=== PATIENT | male | born 1960 | race Caucasian/White ===

== ENCOUNTER 2018-07-04 17:42 | Inpatient (IN) | payer BC, OTHER ==
--- NOTE | 2018-07-04 18:15 | ER Document Report ---
ED Medical Screen (RME) - General Chief Complaint: Shortness Of Breath Stated Complaint: DIFFICULTY BREATHING Time Seen by Provider: 07/04/18 18:01 Notes: 57-year-old male to emergency department for evaluation of shortness of breath, lower extremity edema. Patient states that he was treated for "bronchitis" about a week ago. Medication was finished and continues to have increased shortness of breath. Noticed that he has gained approximately 50 pounds. Feels swollen on his abdomen. Noticed that time he tries to get his shoes on his feet are really swollen. Patient denies any chest pain at this time. Denies any fever, chills, sweats or other issues at this time other than shortness of breath, edema and weight gain. States that he had a heart attack when he was in his 20s and had a stent placed. TRAVEL OUTSIDE OF THE [place] IN LAST 30 DAYS: No - HPI Onset: Last week - Related Data Allergies/Adverse Reactions: No Known Allergies Allergy (Unverified 07/04/18 17:45) Past Medical History - General Information source: Patient - Social History Cigarette use (# per day): No Chew tobacco use (# tins/day): No Frequency of alcohol use: None Drug Abuse: None Lives with: Spouse/Significant other Pulmonary Medical History: Reports: Hx Bronchitis, Hx Pneumonia Renal/ Medical History: Denies: Hx Peritoneal Dialysis Physical Exam - Vital signs Vitals: Temp Pulse Resp BP Pulse Ox 99.0 F 92 22 H 142/92 H 90 L 07/04/18 17:53 07/04/18 17:53 07/04/18 17:53 07/04/18 17:53 07/04/18 17:53 Course - Vital Signs Vital signs: Temp Pulse Resp BP Pulse Ox 99.0 F 92 22 H 142/92 H 90 L 07/04/18 17:53 07/04/18 17:53 07/04/18 17:53 07/04/18 17:53 07/04/18 17:53 Doctor's Discharge - Discharge Referrals: LOCAL,NO [Primary Care Provider] - Follow up as needed
[2018-07-04 18:58] LABS: ABSOLUTE EOSINOPHILS # (AUTO) 0.1 10^3/uL (0.0-0.6); ABSOLUTE LYMPHOCYTES (AUTO) 1.3 10^3/uL (0.5-4.7); ABSOLUTE MONOCYTES (AUTO) 0.8 10^3/uL (0.1-1.4); BASOPHILS % (AUTO) 0.3 % (0-2); EOSINOPHILS % (AUTO) 1.8 % (0-6); HEMATOCRIT 49.6 % (37.9-51.0); HEMOGLOBIN 16.6 g/dL (13.5-17.0); LYMPHOCYTES % (AUTO) 17.6 % (13-45); MEAN CORPUSCULAR HEMOGLOBIN 30.9 pg (27.0-33.4); MEAN CORPUSCULAR HGB CONC 33.5 g/dL (32.0-36.0); MEAN CORPUSCULAR VOLUME 92 fl (80-97); MONOCYTES % (AUTO) 10.7 % (3-13); PLATELET COUNT 115 10^3/uL (150-450); RED BLOOD COUNT 5.39 10^6/uL (4.35-5.55); SEGMENTED NEUTROPHILS % (AUTO) 69.6 % (42-78); TOTAL CELLS COUNTED % (AUTO) 100 %; WHITE BLOOD COUNT 7.1 10^3/uL (4.0-10.5)
[2018-07-04 19:14] LABS: ALANINE AMINOTRANSFERASE 30 U/L (21-72); ALBUMIN 3.7 g/dL (3.5-5.0); ALKALINE PHOSPHATASE 58 U/L (38-126); ANION GAP 10 (5-19); ASPARTATE AMINO TRANSFERASE 29 U/L (17-59); BILIRUBIN,DIRECT 0.3 mg/dL (0.0-0.4); BILIRUBIN,TOTAL 0.6 mg/dL (0.2-1.3); BLOOD UREA NITROGEN 15 mg/dL (7-20); CARBON DIOXIDE 35 mmol/L (22-30); CHLORIDE 99 mmol/L (98-107); CREATINE KINASE 77 U/L (55-170); GLUCOSE 127 mg/dL (75-110); POTASSIUM 4.6 mmol/L (3.6-5.0); SODIUM 144.4 mmol/L (137-145); TOTAL PROTEIN 7.1 g/dL (6.3-8.2)
--- NOTE | 2018-07-04 19:21 | RADIOLOGY REPORT (SQ) ---
EXAM DESCRIPTION: CHEST 2 VIEWS COMPLETED DATE/TIME: 07/04/2018 6:54 pm REASON FOR STUDY: sob COMPARISON: None. NUMBER OF VIEWS: Two views. TECHNIQUE: Frontal and lateral radiographic views of the chest acquired. LIMITATIONS: None. FINDINGS: LUNGS AND PLEURA: No consolidation, masses or pneumothorax. Small right pleural effusion. MEDIASTINUM AND HILAR STRUCTURES: Age-appropriate. HEART AND VASCULAR STRUCTURES: Cardiac enlargement. Vascular congestion. BONES: No acute findings. HARDWARE: None in the chest. OTHER: No other significant finding. IMPRESSION: CARDIAC ENLARGEMENT. VASCULAR CONGESTION.Small right pleural effusion. TECHNICAL DOCUMENTATION: JOB ID: [id number] 2010 [employer]- All Rights Reserved Reading location - IP/workstation name: [email or web address]
[2018-07-04 19:26] LABS: CREATINE KINASE MB 1.63 ng/mL (<4.55)
--- NOTE | 2018-07-04 19:26 | ER Document Report ---
ED General - General Chief Complaint: Shortness Of Breath Stated Complaint: DIFFICULTY BREATHING Time Seen by Provider: 07/04/18 18:01 Notes: Patient is a 57 year old male that comes emergency department for chief complaint of shortness of breath, swelling of the abdomen, and lower extremity swelling. He states that he initially was being treated for bronchitis about 2 weeks ago, his cough is improved but he still has shortness of breath, increased fatigue, and now the swelling. He denies fever, nausea vomiting, particular areas of abdominal pain, he denies chest pain. Past medical history includes AR with stent in his 20s, hyperlipidemia, hypertension. He admits to drinking daily alcohol. Primary care is in [place]. TRAVEL OUTSIDE OF THE [place] IN LAST 30 DAYS: No - Related Data Allergies/Adverse Reactions: No Known Allergies Allergy (Unverified 07/04/18 17:45) Past Medical History - General Information source: Patient - Social History Smoking Status: Never Smoker Cigarette use (# per day): No Chew tobacco use (# tins/day): No Frequency of alcohol use: Heavy Drug Abuse: None Lives with: Spouse/Significant other Family History: Reviewed & Not Pertinent Patient has suicidal ideation: No Patient has homicidal ideation: No - Past Medical History Cardiac Medical History: Reports: Hx Heart Attack, Hx Hypercholesterolemia, Hx Hypertension Pulmonary Medical History: Reports: Hx Bronchitis, Hx Pneumonia Renal/ Medical History: Denies: Hx Peritoneal Dialysis Past Surgical History: Reports: Hx Cardiac Catheterization - Immunizations Hx Diphtheria, Pertussis, Tetanus Vaccination: Yes Review of Systems - Review of Systems Constitutional: See HPI EENT: No symptoms reported Cardiovascular: See HPI Respiratory: See HPI Gastrointestinal: See HPI Genitourinary: No symptoms reported Male Genitourinary: No symptoms reported Musculoskeletal: No symptoms reported Skin: No symptoms reported Hematologic/Lymphatic: No symptoms reported Neurological/Psychological: No symptoms reported Physical Exam - Vital signs Vitals: Temp Pulse Resp BP Pulse Ox 99.0 F 92 22 H 142/92 H 90 L 07/04/18 17:53 07/04/18 17:53 07/04/18 17:53 07/04/18 17:53 07/04/18 17:53 - Notes Notes: GENERAL: Alert, interacts well. Sitting up straight on the bed with borderline tachypnea but no acute distress. HEAD: Normocephalic, atraumatic. EYES: Pupils equal, round, and reactive to light. Extraocular movements intact. ENT: Oral mucosa moist, tongue midline. NECK: Full range of motion. Supple. Trachea midline. LUNGS: Decreased breath sounds bilaterally with mild tachypnea but no overt rales, wheezes, or rhonchi. Patient is not in respiratory distress. HEART: Extrasystoles, irregular rhythm. No tachycardia. No murmur. ABDOMEN: Abdominal distention noted although no tenderness is noted EXTREMITIES: 3+ pitting edema over the lower tibia and feet. Normal pulses and sensation. Unremarkable lower extremity exam otherwise. BACK: no cervical, thoracic, lumbar midline tenderness. No saddle anesthesia, normal distal neurovascular exam. NEUROLOGICAL: Alert and oriented x3. Normal speech. [cranial nerves II through XII grossly intact]. PSYCH: Normal affect, normal mood. SKIN: Warm, dry, normal turgor. No rashes or lesions noted. Course - Re-evaluation Re-evalutation: EKG shows sinus rhythm at a rate of 91, borderline R-wave progression, QTC of 488, first-degree heart block with ID of 204. No T-wave inversions or ST segment abnormality in consecutive leads. No comparison EKG. Patient has mild tachypnea on exam, appears mildly short of breath but not in distress, no labored breathing. Difficult to hear with decreased lung sounds, no overt rales, rhonchi, or wheezes. Patient has distended abdomen which is nontender, 3+ pitting edema of the lower extremities. He does drink a lot of alcohol but no history of liver failure. PT, PTT checked and unremarkable. LFTs unremarkable. CBC unremarkable. Chemistry generally unremarkable. Chest x-ray showing vascular congestion with small right pleural effusion, beginning Lasix, nitroglycerin. Borderline pressures, only using transdermal patch. BNP is elevated, no history of heart failure for the patient. Troponin is indeterminate at 0.06. No chest pain. No current symptoms reported by patient. Will discuss with hospitalist for admission for evaluation and treatment for new onset congestive heart failure. Patient and state agreement with this plan. 07/04/18 20:[address] Cristy Morales, hospitalist, patient accepted for admission to telemetry. - Vital Signs Vital signs: Temp Pulse Resp BP Pulse Ox 99.0 F 92 17 124/105 H 94 07/04/18 17:53 07/04/18 17:53 07/04/18 19:01 07/04/18 19:01 07/04/18 19:01 - Laboratory Result Diagrams: 07/04/18 18:45 07/04/18 18:45 Laboratory results interpreted by me: 07/04/18 07/04/18 07/04/18 18:45 18:45 18:45 RDW 15.0 H Plt Count 115 L Carbon Dioxide 35 H Glucose 127 H NT-Pro-B Natriuret Pep 2250 H Discharge - Discharge Clinical Impression: Pulmonary vascular congestion, Lower extremity edema, Shortness of breath Condition: Stable Disposition: ADMITTED INPATIENT Admitting Provider: Hospitalist Unit Admitted: Telemetry
[2018-07-04 19:33] LABS: TROPONIN I 0.06 ng/mL
[2018-07-04 19:34] LABS: PROTHROMBIN TIME 14.7 SEC (11.4-15.4)
[2018-07-04] MEDS ORDERED: FUROSEMIDE INJ/PF 40 MG/4 ML SDV IV ONE (19:38)
[2018-07-04] MEDS ORDERED: NITROGLYCERIN 5 MG (0.2 MG/HR) PATCH.TD24 TD ONE (19:41)
--- NOTE | 2018-07-04 21:21 | PDOC H&P ---
History of Present Illness Admission Date/PCP: 07/04/18 20:40 Patient complains of: Shortness of breath, lower extremity edema History of Present Illness: ALEE GUTIERRES is a 57 year old male who has history of hypertension and dyslipidemia and OR about 30 years ago status post angioplasty. Patient's problems started about 2 months ago when he had respiratory issues and was diagnosed with pneumonia and was treated with antibiotic but he did not improve and felt like "fluid is building up in his body". Patient continued to have increasing edema in his lower extremities and abdomen with increasing shortness of breath was especially with exertion. He does not complain of chest pain, dizziness or lightheadedness. No paroxysmal nocturnal dyspnea or orthopnea. Patient gained about 35 pounds during the last 2-month. In the emergency room his x-ray was positive for cardiomegaly and vascular congestion. Past Medical History Cardiac Medical History: Reports: Myocardial Infarction, Hyperlipidema, Hypertension Pulmonary Medical History: Reports: Bronchitis, Pneumonia Past Surgical History Past Surgical History: Reports: Cardiac Catheterization Social History Lives with: Spouse/Significant other Smoking Status: Never Smoker Family History Parental Family History Reviewed: Yes Children Family History Reviewed: Yes Sibling(s) Family History Reviewed.: Yes Medication/Allergy Home Medications: Losartan Potassium [Cozaar 50 mg Tablet] 50 mg PO DAILY 07/04/18 Pravastatin Sodium [Pravachol] 20 mg PO DAILY 07/04/18 Allergies/Adverse Reactions: No Known Allergies Allergy (Unverified 07/04/18 17:45) Review of Systems All systems: reviewed and no additional remarkable complaints except as stated Physical Exam Vital Signs: Temp Pulse Resp BP Pulse Ox 99.0 F 92 17 124/105 H 94 07/04/18 17:53 07/04/18 17:53 07/04/18 19:01 07/04/18 19:01 07/04/18 19:01 Intake & Output 07/03/18 07/04/18 07/05/18 06:59 06:59 06:59 Output Total 550 Balance -550 General appearance: PRESENT: cooperative, morbidly obese. ABSENT: no acute distress Head exam: PRESENT: atraumatic, normocephalic Eye exam: PRESENT: EOMI, PERRLA. ABSENT: conjunctival injection, nystagmus Ear exam: ABSENT: bleeding, drainage Mouth exam: PRESENT: neck supple, tongue midline. ABSENT: dry mucosa, laceration Throat exam: ABSENT: post pharyngeal erythema, tonsillar erythema, tonsillar exudate Neck exam: PRESENT: full ROM. ABSENT: lymphadenopathy, meningismus, tenderness , thyromegaly, tracheal deviation Respiratory exam: PRESENT: clear to auscultation gunjan. ABSENT: accessory muscle use, tachypnea Cardiovascular exam: PRESENT: RRR. ABSENT: diastolic murmur, irregular rhythm, systolic murmur Pulses: PRESENT: normal dorsalis pedis pul GI/Abdominal exam: PRESENT: normal bowel sounds, soft. ABSENT: distended, guarding, mass, organolmegaly, rebound, tenderness Extremities exam: PRESENT: pedal edema, +2 edema. ABSENT: clubbing Musculoskeletal exam: PRESENT: ambulatory, normal inspection Neurological exam: PRESENT: alert, awake, oriented to person, oriented to place , oriented to time, oriented to situation, CN II-XII grossly intact. ABSENT: motor sensory deficit Psychiatric exam: PRESENT: appropriate affect, normal mood. ABSENT: homicidal ideation, suicidal ideation Results Impressions: Chest X-Ray 07/04/18 18:08 IMPRESSION: CARDIAC ENLARGEMENT. VASCULAR CONGESTION.Small right pleural effusion. Assessment & Plan - Diagnosis (1) CHF (congestive heart failure) Is this a current diagnosis for this admission?: Yes Plan: Admit to telemetry Daily weights and strict I's and O's IV Lasix 40 mg twice daily and monitor renal function check serial troponin An echocardiogram Consult cardiology Add aspirin and carvedilol Continue losartan (2) Pulmonary vascular congestion Is this a current diagnosis for this admission?: Yes Plan: Due to CHF (4) Lower extremity edema Is this a current diagnosis for this admission?: Yes Plan: Due to CHF (5) Hypertension Is this a current diagnosis for this admission?: Yes Plan: Continue with losartan and add carvedilol monitor blood pressure (6) Dyslipidemia Is this a current diagnosis for this admission?: Yes Plan: Continue statin
[2018-07-04] MEDS: CARVEDILOL 3.125 MG TABLET PO SCH (21:58)
[2018-07-04] MEDS: ATORVASTATIN CALCIUM 10 MG TABLET PO SCH (21:58)
[2018-07-04] MEDS: FUROSEMIDE INJ/PF 40 MG/4 ML SDV IV SCH (21:58)
[2018-07-04] MEDS: ENOXAPARIN SODIUM INJ 40 MG/0.4 ML DISP.SYRIN SUBCUT SCH (21:59)
[2018-07-04] MEDS ORDERED: FUROSEMIDE INJ/PF 20 MG/2 ML SDV IV SCH (22:00)
[2018-07-05 04:38] LABS: ABSOLUTE EOSINOPHILS # (AUTO) 0.2 10^3/uL (0.0-0.6); ABSOLUTE LYMPHOCYTES (AUTO) 1.2 10^3/uL (0.5-4.7); ABSOLUTE NEUT (AUTO) 5.7 10^3/uL (1.7-8.2); BASOPHILS % (AUTO) 0.2 % (0-2); EOSINOPHILS % (AUTO) 2.2 % (0-6); HEMATOCRIT 46.9 % (37.9-51.0); HEMOGLOBIN 15.7 g/dL (13.5-17.0); LYMPHOCYTES % (AUTO) 14.5 % (13-45); MEAN CORPUSCULAR HEMOGLOBIN 30.7 pg (27.0-33.4); MEAN CORPUSCULAR HGB CONC 33.6 g/dL (32.0-36.0); MEAN CORPUSCULAR VOLUME 92 fl (80-97); MONOCYTES % (AUTO) 11.9 % (3-13); PLATELET COUNT 122 10^3/uL (150-450); RED BLOOD COUNT 5.12 10^6/uL (4.35-5.55); SEGMENTED NEUTROPHILS % (AUTO) 71.2 % (42-78); TOTAL CELLS COUNTED % (AUTO) 100 %
[2018-07-05 04:55] LABS: ANION GAP 11 (5-19); BLOOD UREA NITROGEN 13 mg/dL (7-20); CALCIUM 8.5 mg/dL (8.4-10.2); CARBON DIOXIDE 35 mmol/L (22-30); CHLORIDE 98 mmol/L (98-107); GLUCOSE 124 mg/dL (75-110); POTASSIUM 4.2 mmol/L (3.6-5.0); SODIUM 144.1 mmol/L (137-145); TRIGLYCERIDES 105 mg/dL (<150)
[2018-07-05 05:05] LABS: DIRECT LDL 81 mg/dL (<100)
--- NOTE | 2018-07-05 09:03 | RADIOLOGY REPORT (SQ) ---
EXAM DESCRIPTION: CHEST 2 VIEWS COMPLETED DATE/TIME: 07/05/2018 8:42 am REASON FOR STUDY: chf COMPARISON: 07/04/2018. EXAM PARAMETERS: NUMBER OF VIEWS: two views TECHNIQUE: Digital Frontal and Lateral radiographic views of the chest acquired. RADIATION DOSE: NA LIMITATIONS: none FINDINGS: LUNGS AND PLEURA: No opacities, masses or pneumothorax. No pleural effusion. MEDIASTINUM AND HILAR STRUCTURES: No masses or contour abnormalities. HEART AND VASCULAR STRUCTURES: Persistent cardiomegaly with pulmonary vascular congestion. Bilateral pleural thickening or effusions. BONES: No acute findings. HARDWARE: None in the chest. OTHER: Chest leads in place. IMPRESSION: Congestive failure with effusions. No significant improvement or change. TECHNICAL DOCUMENTATION: JOB ID: [id number] [id number] 2010 [employer]- All Rights Reserved Reading location - IP/workstation name: [email or web address]
[2018-07-05] MEDS: CARVEDILOL 3.125 MG TABLET PO SCH ×2 (09:56→21:33)
[2018-07-05] MEDS: FUROSEMIDE INJ/PF 40 MG/4 ML SDV IV SCH ×2 (09:56→21:33)
[2018-07-05] MEDS: ENOXAPARIN SODIUM INJ 40 MG/0.4 ML DISP.SYRIN SUBCUT SCH (09:58)
[2018-07-05] MEDS ORDERED: LOSARTAN POTASSIUM 50 MG TABLET PO SCH (10:00)
--- NOTE | 2018-07-05 10:45 | EKG REPORT ---
SEVERITY:- ABNORMAL ECG - SINUS RHYTHM VENTRICULAR PREMATURE COMPLEX PROBABLE LEFT ATRIAL ABNORMALITY RBBB AND LAFB : Confirmed by: Stephanie Huang 05-Jul-2018 10:44:12
--- NOTE | 2018-07-05 10:45 | EKG REPORT ---
SEVERITY:- ABNORMAL ECG - SINUS RHYTHM PROBABLE LEFT ATRIAL ABNORMALITY NONSPECIFIC IVCD WITH LAD BORDERLINE R WAVE PROGRESSION, ANTERIOR LEADS : Confirmed by: Stephanie Huang 05-Jul-2018 10:44:39
--- NOTE | 2018-07-05 15:19 | PDOC PROGRESS REPORT ---
Subjective Progress Note for:: 07/05/18 Subjective:: Patient diuresis quite a bit last night and feels a lot better Reason For Visit: HEART FAILURE Physical Exam Vital Signs: Temp Pulse Resp BP Pulse Ox 98.1 F 77 18 110/64 97 07/05/18 12:14 07/05/18 14:00 07/05/18 12:14 07/05/18 12:14 07/05/18 12:14 Intake & Output 07/04/18 07/05/18 07/06/18 06:59 06:59 06:59 Intake Total 336 Output Total 2100 Balance -1764 Weight 312 lb 6.32 oz General appearance: PRESENT: cooperative. ABSENT: no acute distress Head exam: ABSENT: atraumatic, normocephalic Eye exam: PRESENT: EOMI, PERRLA. ABSENT: periorbital swelling Ear exam: ABSENT: bleeding, drainage Throat exam: ABSENT: post pharyngeal erythema, tonsillogmegaly Neck exam: ABSENT: meningismus, tenderness, thyromegaly Respiratory exam: PRESENT: clear to auscultation gunjan. ABSENT: rales, rhonchi, wheezes Cardiovascular exam: PRESENT: RRR. ABSENT: diastolic murmur, rubs, systolic murmur Pulses: PRESENT: normal carotid pulses GI/Abdominal exam: PRESENT: normal bowel sounds, soft. ABSENT: ascites, distended, guarding, mass, organolmegaly, rebound, tenderness Extremities exam: PRESENT: pedal edema, +2 edema Neurological exam: PRESENT: alert, awake, oriented to person, oriented to place , oriented to time, oriented to situation, CN II-XII grossly intact. ABSENT: motor sensory deficit Results Laboratory Results: 07/05/18 03:35 07/05/18 03:35 07/05/18 07/05/18 03:35 03:35 WBC 8.0 RBC 5.12 Hgb 15.7 Hct 46.9 MCV 92 MCH 30.7 MCHC 33.6 RDW 15.0 H Plt Count 122 L Seg Neutrophils % 71.2 Lymphocytes % 14.5 Monocytes % 11.9 Eosinophils % 2.2 Basophils % 0.2 Absolute Neutrophils 5.7 Absolute Lymphocytes 1.2 Absolute Monocytes 1.0 Absolute Eosinophils 0.2 Absolute Basophils 0.0 Sodium 144.1 Potassium 4.2 Chloride 98 Carbon Dioxide 35 H Anion Gap 11 BUN 13 Creatinine 0.70 Est GFR ( Amer) > 60 Est GFR (Non-Af Amer) > 60 Glucose 124 H Calcium 8.5 Magnesium 1.9 Triglycerides 105 Cholesterol 132.00 LDL Cholesterol Direct 81 VLDL Cholesterol 21.0 HDL Cholesterol 24 L 07/04/18 07/05/18 07/05/18 21:35 03:35 09:38 Troponin I 0.066 0.058 0.051 Impressions: Chest X-Ray 07/05/18 00:00 IMPRESSION: Congestive failure with effusions. No significant improvement or change. Assessment & Plan - Diagnosis (1) CHF (congestive heart failure) Is this a current diagnosis for this admission?: Yes Plan: Daily weights and strict I's and O's IV Lasix 40 mg twice daily and monitor renal function follow echocardiogram follow cardiology evaluation continue aspirin and carvedilol Continue losartan (2) Pulmonary vascular congestion Is this a current diagnosis for this admission?: Yes Plan: Due to CHF (4) Lower extremity edema Is this a current diagnosis for this admission?: Yes Plan: Due to CHF (5) Hypertension Is this a current diagnosis for this admission?: Yes Plan: Continue with losartan and carvedilol monitor blood pressure (6) Dyslipidemia Is this a current diagnosis for this admission?: Yes Plan: Continue statin
--- NOTE | 2018-07-05 19:34 | XCELERA REPORT ---
[address] [address] Transthoracic Echocardiogram Report Name: ALEE GUTIERRES Age: 57 yrs Gender: Male : 1960 Patient Status: Inpatient Patient Location: [address] [place] [address] Study Date: 07/05/2018 05:11 PM Height: 69 in Weight: 313 lb BSA: 2.5 m2 Procedure: A two-dimensional transthoracic echocardiogram with color flow Doppler was performed. Study Quality: Technically suboptimal. The study was technically difficult with many images being suboptimal in quality. Poor endocardial visualisation , and poor doppler intergation.Hence interpretation is severely lilmited by these. Reason For Study: chf History: CHF. Ordering Physician: RABIA [place] Performed By: Jesús Cummins Interpretation Summary The right ventricle is not well visualized secondary to technical limitations Suspect RV enlargement. The left atrium is moderately dilated. There is no evidence of mitral valve prolapse. There is no vegetation seen on the mitral valve. There is no mitral valve stenosis. Probably trace MR. There is no aortic valve stenosis There is no LVOT obstruction. No aortic regurgitation is present. There is no tricuspid stenosis. Probably trace TR, but this is not a good study to have this being reliable.RVSP is 36 to 41 mm of Hg , with RA mean of 10 to 14.(Mild pulmonary hypertension.).But this may represent undersampling of RVSp and degree of pulmonary hypertension. There is no pericardial effusion. Probably mild to moderate LV enlargement.Proabably mild to moderate diffuse hypokinesis.LVEF probably moderately reduced.Recomend MUGA for RVEF and LVEF.This is not reliable.Recommend MUGA -'First Pass' , for RVEF and LVEF. MMode/2D Measurements & Calculations RVDd: 4.2 cm LVIDd: 7.5 cm FS: 35.4 % Ao root diam: 3.2 cm IVSd: 1.3 cm LVIDs: 4.8 cm EDV(Teich): 297.9 ml LVPWd: 1.3 cm ESV(Teich): 109.8 ml Ao root area: 8.1 cm2 EF(Teich): 63.1 % LA dimension: 5.6 cm Doppler Measurements & Calculations MV E max edwardo: MV P1/2t max edwardo: Ao V2 max: LV V1 max P.8 cm/sec 112.0 cm/sec 109.3 cm/sec 2.5 mmHg MV A max edwardo: MV P1/2t: 82.5 msec Ao max PG: LV V1 max: 41.0 cm/sec 4.8 mmHg 79.0 cm/sec MV E/A: 2.2 MVA(P1/2t): 2.7 cm2 LV dP/dt: MV dec slope: 649.0 mmHg/s 397.7 cm/sec2 MV dec time: 0.14 sec PA V2 max: TR max edwardo: 88.4 cm/sec 253.4 cm/sec PA max PG: TR max P.7 mmHg 3.1 mmHg Left Ventricle Probably mild to moderate LV enlargement.Proabably mild to moderate diffuse hypokinesis.LVEF probably moderately reduced.Recomend MUGA for RVEF and LVEF.This is not reliable.Recommend MUGA -'First Pass' , for RVEF and LVEF. Right Ventricle The right ventricle is not well visualized secondary to technical limitations. Suspect RV enlargement. Atria The right atrium is mild to moderately dilated. The left atrium is moderately dilated. Mitral Valve There is no evidence of mitral valve prolapse. There is no vegetation seen on the mitral valve. There is no mitral valve stenosis. Probably trace MR. Aortic Valve There is no aortic valve stenosis. There is no LVOT obstruction. No aortic regurgitation is present. Tricuspid Valve There is no tricuspid stenosis. Probably trace TR, but this is not a good study to have this being reliable.RVSP is 36 to 41 mm of Hg , with RA mean of 10 to 14.(Mild pulmonary hypertension.).But this may represent undersampling of RVSp and degree of pulmonary hypertension. Pulmonic Valve The pulmonic valve is not well visualized. Great Vessels The aortic root is not well visualized. Effusions There is no pericardial effusion. : RABIA [place] > [place]ia [place]
--- NOTE | 2018-07-05 21:04 | RADIOLOGY REPORT (SQ) ---
EXAM DESCRIPTION: CTA CHEST COMPLETED DATE/TIME: 07/05/2018 8:48 pm REASON FOR STUDY: SOB COMPARISON: AP chest 07/05/2018, 07/04/2018 TECHNIQUE: CT scan of the chest performed using helical scanning technique with dynamic intravenous contrast injection. Images reviewed with lung, soft tissue and bone windows. Reconstructed coronal and sagittal MPR images reviewed. Additional 3 dimensional post-processing performed to develop Maximal Intensity Projection images (MA P). All images stored on PACS. All CT scanners at this facility use dose modulation, iterative reconstruction, and/or weight based d osing when appropriate to reduce radiation dose to as low as reasonably achievable (ALARA). [facility]: Dose Right [facility]: CareDose [facility]: Dose Right [facility]: Teradose 4D [facility]: Surreal Ink CONTRAST TYPE AND DOSE: contrast/concentration: Isovue 350.00 mg/ml; Total Contrast Delivered: 86.0 ml; Total Saline Delivered: 110.0 ml Contrast bolus optimized for the pulmonary arteries. Not diagnostic for the aorta. RENAL FUNCTION: Creatinine 0.7 RADIATION DOSE: CT Rad equipment meets quality standard of care and radiation dose reduction techniq ues were employed. CTDIvol: 39.3 - 49.6 mGy. DLP: 1705 mGy-cm. . LIMITATIONS: None. FINDINGS: LUNGS AND PLEURA: Small right pleural effusion. Minimal right basilar atelectasis. Left lung clear. No left pleural effusion. No right or left pneumothorax. AORTA AND GREAT VESSELS: No aneurysm. Contrast bolus not optimized for the aorta. HEART: No pericardial effusion. Moderate to marked coronary artery calcifications. PULMONARY ARTERIES: No emboli visualized in the main pulmonary arteries or the segmental branches. HILAR AND MEDIASTINAL STRUCTURES: No identified masses or abnormal nodes. HARDWARE: None in the chest. UPPER ABDOMEN: No significant findings. Limited exam. THYROID AND OTHER SOFT TISSUES: No masses. No adenopathy. BONES: No acute or significant finding. 3D MIPS: Confirm above findings. OTHER: No other significant finding. IMPRESSION: Small right pleural effusion with right basilar atelectasis. Very heavily calcified left coronary artery COMMENT: Quality ID # [id number]: Final reports with documentation of one or more dose reduction techniques (e.g., Automated exposure control, adjustment of the mA and/or kV according to patient size, use of iterative reconstruction technique) TECHNICAL DOCUMENTATION: JOB ID: [id number]- All Rights Reserved Reading location - IP/workstation name: [email or web address]
[2018-07-05] MEDS: ATORVASTATIN CALCIUM 10 MG TABLET PO SCH (21:33)
[2018-07-06 06:20] LABS: ANION GAP 12 (5-19); BLOOD UREA NITROGEN 11 mg/dL (7-20); CALCIUM 8.9 mg/dL (8.4-10.2); CARBON DIOXIDE 39 mmol/L (22-30); CHLORIDE 93 mmol/L (98-107); GLUCOSE 105 mg/dL (75-110); POTASSIUM 4.4 mmol/L (3.6-5.0); SODIUM 143.8 mmol/L (137-145)
[2018-07-06] MEDS: FUROSEMIDE INJ/PF 40 MG/4 ML SDV IV SCH (09:15)
[2018-07-06] MEDS: ENOXAPARIN SODIUM INJ 40 MG/0.4 ML DISP.SYRIN SUBCUT SCH (09:26)
--- NOTE | 2018-07-06 09:54 | EKG REPORT ---
SEVERITY:- ABNORMAL ECG - SINUS RHYTHM ATRIAL PREMATURE COMPLEX FIRST DEGREE AV BLOCK PROBABLE LEFT ATRIAL ABNORMALITY RBBB AND LAFB : Confirmed by: Stephanie Huang 06-Jul-2018 09:53:01
[2018-07-06] MEDS ORDERED: CARVEDILOL 3.125 MG TABLET PO SCH (10:00)
[2018-07-06] MEDS ORDERED: LOSARTAN POTASSIUM 50 MG TABLET PO SCH (10:00)
[2018-07-06 13:23] VITALS: BP 98/58
--- NOTE | 2018-07-06 13:45 | RADIOLOGY REPORT (SQ) ---
EXAM DESCRIPTION: NM CARDIAC 1ST PASS; NM MUGA REST COMPLETED DATE/TIME: 07/06/2018 1:23 pm; 07/06/2018 1:19 pm REASON FOR STUDY: chf; FIRST PASS: ASSESS RV AND LV EF's. COMPARISON: CT angio chest 07/05/2018 Cardiac echo 07/05/2018 RADIONUCLIDE AND DOSE: 26.8 mCi technetium 99m labeled red blood cells The route of agent administration: Intravenous TECHNIQUE: Following administration of the radionuclide, gated images of the heart are obtained in t hree projections. Right ventricular and Left ventricular functional analysis performed. LIMITATIONS: None. FINDINGS: RIGHT VENTRICULAR FUNCTION: 1st pass imaging of the right ventricle demonstrates an estimated right ventricular ejection fraction of 61% LEFT VENTRICULAR FUNCTION: EJECTION FRACTION: 38%. END-DIASTOLIC VOLUME: 331 mL. END-SYSTOLIC VOLUME: 194 mL. WALL MOTION: Globally depressed wall motion and wall thickening OTHER: No other significant finding. IMPRESSION: 1st pass right ventricular ejection fraction estimated at 61%. Left ventricular ejection fraction estimated at 38% Dilated left ventricle with globally depressed wall motion and wall thickening TECHNICAL DOCUMENTATION: JOB ID: [id number]- All Rights Reserved Reading location - IP/workstation name: [email or web address]
--- NOTE | 2018-07-06 13:45 | RADIOLOGY REPORT (SQ) ---
EXAM DESCRIPTION: NM CARDIAC 1ST PASS; NM MUGA REST COMPLETED DATE/TIME: 07/06/2018 1:23 pm; 07/06/2018 1:19 pm REASON FOR STUDY: chf; FIRST PASS: ASSESS RV AND LV EF's. COMPARISON: CT angio chest 07/05/2018 Cardiac echo 07/05/2018 RADIONUCLIDE AND DOSE: 26.8 mCi technetium 99m labeled red blood cells The route of agent administration: Intravenous TECHNIQUE: Following administration of the radionuclide, gated images of the heart are obtained in t hree projections. Right ventricular and Left ventricular functional analysis performed. LIMITATIONS: None. FINDINGS: RIGHT VENTRICULAR FUNCTION: 1st pass imaging of the right ventricle demonstrates an estimated right ventricular ejection fraction of 61% LEFT VENTRICULAR FUNCTION: EJECTION FRACTION: 38%. END-DIASTOLIC VOLUME: 331 mL. END-SYSTOLIC VOLUME: 194 mL. WALL MOTION: Globally depressed wall motion and wall thickening OTHER: No other significant finding. IMPRESSION: 1st pass right ventricular ejection fraction estimated at 61%. Left ventricular ejection fraction estimated at 38% Dilated left ventricle with globally depressed wall motion and wall thickening TECHNICAL DOCUMENTATION: JOB ID: [id number]- All Rights Reserved Reading location - IP/workstation name: [email or web address]
--- NOTE | 2018-07-06 15:03 | PDOC DISCHARGE SUMMARY ---
General - Admit/Disc Date/PCP Admission Date/Primary Care Provider: 07/04/18 20:40 Discharge Date: 07/06/18 - Discharge Diagnosis (1) CHF (congestive heart failure) Is this a current diagnosis for this admission?: Yes (2) Pulmonary vascular congestion Is this a current diagnosis for this admission?: Yes (4) Lower extremity edema Is this a current diagnosis for this admission?: Yes (5) Hypertension Is this a current diagnosis for this admission?: Yes (6) Dyslipidemia Is this a current diagnosis for this admission?: Yes - Additional Information Discharge Diet: Cardiac Discharge Activity: Activity As Tolerated Prescriptions: Carvedilol [Coreg 3.125 mg Tablet] 6.25 mg PO Q12 #60 tablet Furosemide [Lasix Inj/Pf 40 mg/4 ml Sdv] 40 mg PO DAILY #30 vial Home Medications: Losartan Potassium [Cozaar 50 mg Tablet] 50 mg PO DAILY 07/04/18 Pravastatin Sodium [Pravachol] 20 mg PO DAILY 07/04/18 Carvedilol [Coreg 3.125 mg Tablet] 6.25 mg PO Q12 #60 tablet 07/06/18 Furosemide [Lasix Inj/Pf 40 mg/4 ml Sdv] 40 mg PO DAILY #30 vial 07/06/18 History of Present Illness History of Present Illness: ALEE GUTIERRES is a 57 year old male who has history of hypertension and dyslipidemia and MT about 30 years ago status post angioplasty. Patient's problems started about 2 months ago when he had respiratory issues and was diagnosed with pneumonia and was treated with antibiotic but he did not improve and felt like "fluid is building up in his body". Patient continued to have increasing edema in his lower extremities and abdomen with increasing shortness of breath was especially with exertion. He does not complain of chest pain, dizziness or lightheadedness. No paroxysmal nocturnal dyspnea or orthopnea. Patient gained about 35 pounds during the last 2-month. In the emergency room his x-ray was positive for cardiomegaly and vascular congestion. Hospital Course Hospital Course: Patient received IV Lasix twice daily Daily weights and I's and O's were measured He lost about 30 pounds during diuresis Echocardiogram was failure to estimate ejection fraction CT angiogram of the chest was negative for PE MUGA scan showed ejection fraction of 38% Patient is cleared by cardiology for discharge Patient feels a lot better and wants to go home He is being discharged on p.o. Lasix, carvedilol and losartan Physical Exam Vital Signs: Temp Pulse Resp BP Pulse Ox 98.0 F 78 20 98/58 L 93 07/06/18 11:00 07/06/18 11:00 07/06/18 11:00 07/06/18 11:00 07/06/18 11:00 Intake & Output 07/05/18 07/06/18 07/07/18 06:59 06:59 06:59 Intake Total 336 1960 Output Total 2100 Balance -1764 1960 Weight 312 lb 6.32 oz 307 lb 1.663 oz General appearance: PRESENT: cooperative. ABSENT: no acute distress Eye exam: ABSENT: conjunctival injection Respiratory exam: PRESENT: clear to auscultation gunjan. ABSENT: accessory muscle use Cardiovascular exam: PRESENT: RRR. ABSENT: diastolic murmur, rubs, systolic murmur Pulses: PRESENT: normal dorsalis pedis pul GI/Abdominal exam: PRESENT: normal bowel sounds, soft. ABSENT: distended, guarding, mass, organolmegaly, rebound, tenderness Neurological exam: PRESENT: alert, awake, oriented to person, oriented to place , oriented to time, oriented to situation, CN II-XII grossly intact. ABSENT: motor sensory deficit Results Laboratory Results: 07/05/18 03:35 07/06/18 04:54 07/06/18 04:54 Sodium 143.8 Potassium 4.4 Chloride 93 L Carbon Dioxide 39 H Anion Gap 12 BUN 11 Creatinine 0.71 Est GFR ( Amer) > 60 Est GFR (Non-Af Amer) > 60 Glucose 105 Calcium 8.9 07/04/18 07/05/18 07/05/18 21:35 03:35 09:38 Troponin I 0.066 0.058 0.051 Impressions: Chest X-Ray 07/05/18 00:00 IMPRESSION: Congestive failure with effusions. No significant improvement or change. Chest/Abdomen CTA 07/05/18 00:00 IMPRESSION: Small right pleural effusion with right basilar atelectasis. Very heavily calcified left coronary artery Cardiac Imaging Nuclear Medicine 07/06/18 00:00 IMPRESSION: 1st pass right ventricular ejection fraction estimated at 61%. Left ventricular ejection fraction estimated at 38% Dilated left ventricle with globally depressed wall motion and wall thickening MUGA 07/06/18 06:00 IMPRESSION: 1st pass right ventricular ejection fraction estimated at 61%. Left ventricular ejection fraction estimated at 38% Dilated left ventricle with globally depressed wall motion and wall thickening Qualifiers - * PATIENT BEING DISCHARGED WITH ANY OF THE FOLLOWING DIAGNOSIS: Heart Failure HF Pt being discharged on ACEI for LVEF less than 40%?: No Reason(s) for not prescribing ACEI:: Procedure not indicated HF Pt being discharged on ARBS for LVEF less than 40%?: Yes HF Pt with Afib discharged with Warfarin?: No Reason(s) for not prescribing Warfarin:: Procedure not indicated HF Pt discharged on evidence-based Beta Ad:: Yes
--- NOTE | 2018-07-06 20:56 | PROGRESS NOTE E ---
Progress Note NAME: ALEE GUTIERRES : 1960 AGE: 57Y DATE: 07/06/2018 ROOM: 529 SUBJECTIVE: The patient states he feels much better. There is no shortness of breath. There in no PND, orthopnea. There is no arrhythmia seen on the monitor. The patient has no chest pain. His leg edema is much improved. There is only a trace edema. There is no TIA or CVA symptoms. OBJECTIVE: GENERAL: On examination the patient is morbidly obese, but well-groomed. VITAL SIGNS: He is afebrile with a temperature of 97.8 degrees Fahrenheit, pulse is 85 beats per minute, blood pressure 115/70, respirations are 19 per minute, O2 saturations are 94% on room air. HEENT: Head is atraumatic, normocephalic. Eyes: Pupils are equal, round and regular, reactive to light and accommodation. Extraocular movements are normal. There is no conjunctival pallor. There is no scleral icterus. ENT is negative. NECK: Supple. There is no JVD. There is no lymphadenopathy. Carotids are equal. There is no bruit. Trachea is central. LUNGS: Clear to auscultation and percussion. There is no chest wall tenderness. HEART: S1, S2 is heard. There is no S3 gallop. There is no S4 gallop. There is a systolic murmur in the left sternal border and the apex without radiation. ABDOMEN: Soft, obese, nontender. There is no hepatosplenomegaly. Bowel sounds are well heard. EXTREMITIES: Femorals are diminished. There are no femoral bruits. Leg pulses are diminished. There is trace pedal edema bilaterally. There is no cyanosis or clubbing. There is no DVT or cellulitis. There is no calf tenderness. CENTRAL NERVOUS SYSTEM: The patient is conscious, awake, alert and oriented x3 with no focal deficits. PSYCHIATRIC: The patient's judgment and insight are intact. His affect is normal. INTAKE/OUTPUT: The patient's 24 hour intake is 1960 mL, output has not been recorded. DIAGNOSTIC STUDIES: Note, the patient's pulmonary CT angiogram did not show any pulmonary emboli. It showed the coronary system was heavily calcified. The patient's MUGA shows a right ventricular ejection fraction of 61%, the left ventricular ejection fraction is 38%, and hence the patient's LV ejection fraction is mild to moderately reduced. The patient's sodium is 143.8, potassium 4.4, chloride is 93, CO2 is 39. The patient's BUN is 11, creatinine is 0.79, GFR is greater than 60, glucose is 105. His calcium is 8.9. His troponin I, his last yesterday was 0.051. IMPRESSION: 1. ACUTE SYSTOLIC LV HEART FAILURE, AT PRESENT COMPENSATED. 2. CARDIOMYOPATHY WITH MILD TO MODERATELY REDUCED EJECTION FRACTION. The LV ejection fraction is 35-40% by echo and 38% by MUGA. 3. CORONARY ARTERY DISEASE. History of CO 30 years ago, details of which are not available. 4. HYPERTENSION. 5. HYPERLIPIDEMIA. 6. MORBID OBESITY. RECOMMENDATIONS: Would change the patient's IV Lasix to p.o. Lasix. Note that the patient's Coreg has been increased to 6.25 mg p.o. b.i.d. and also Cozaar has been increased to 50 mg p.o. q.12 hours. Continue aspirin and statin. The patient is anxious to go home, we will discharge the patient home. We will schedule the patient for outpatient IV Lexiscan Cardiolite stress testing. The patient wants me to talk to his primary care physician, *------*. I have his number, will call him tomorrow, that is Saturday 07/07. Note his medications have been reviewed and medication changes discussed with the patient and patient's significant other and also the attending physician on the case. Medical decision making is of high complexity. The findings of MUGA have also been discussed with the patient. TIME SPENT: Note 40 minutes spent on this patient with more than 50% of the time spent on direct patient care. We will sign off and follow the patient outpatient since the patient desires to follow up with me. We will follow with you. DICTATING PHYSICIAN: [place] M.D. [id number] CHARLIE#: [id number] ID: [id number] JOB#: [id number] ACCT: [id number] cc: >
== END 2018-07-06 17:23 | disposition home or self-care (01) | DRG 292 ==
LOC: ER 17:42 → EH 20:40 → 5 22:55
PROVIDERS: ADMIT Family Medicine; ATTEND Family Medicine
DX: I11.0 Hypertensive heart disease with heart failure (principal); Z68.42 Body mass index [BMI] 45.0-49.9, adult; E78.00 Pure hypercholesterolemia, unspecified; R09.89 Other specified symptoms and signs involving the circulatory and respiratory systems; E66.01 Morbid (severe) obesity due to excess calories; I50.21 Acute systolic (congestive) heart failure; I42.9 Cardiomyopathy, unspecified; I25.10 Atherosclerotic heart disease of native coronary artery without angina pectoris; I25.2 Old myocardial infarction; Z95.5 Presence of coronary angioplasty implant and graft
CPT/HCPCS: 36415; 71046; 71275; 78472; 78496; 80048; 80053; 80061; 82550; 82553; 83036; 83735; 83880; 84443; 84484; 85025; 85610; 85730; 93005; 93010; 93306; 96374; 99285; A9538; A9560; J1650; J1940; J3490; Q9969

== ENCOUNTER 2018-10-14 11:45 | Inpatient (IN) | payer BC ==
--- NOTE | 2018-10-14 12:34 | ER Document Report ---
ED Medical Screen (RME) - General Chief Complaint: Breathing Difficulty Stated Complaint: DIFFICULTY BREATHING Time Seen by Provider: 10/14/18 12:28 Notes: Patient is a 57-year-old male with CHF, and asthma that presents to the emergency department for chief complaint of shortness of breath and cough. Patient seen by urgent care and given breathing treatments, and in section of steroid, without improvement over the weekend, seen by primary care and advised to come to the ED today. ROS: Other than noted above, the 12 point review of systems was reviewed with the patient and were negative, all pertinent findings are included in the HPI. PHYSICAL EXAMINATION: Vital signs reviewed. GENERAL: Well-appearing, well-nourished and in no acute distress. HEAD: Atraumatic, normocephalic. EYES: Pupils equal round extraocular movements intact, conjunctiva are normal. ENT: Nares patent NECK: Normal range of motion CV: Heart regular rate and rhythm LUNGS: Diffuse expiratory wheezing throughout all lung menendez. Musculoskeletal: Normal range of motion NEUROLOGICAL: Normal speech PSYCH: Normal mood, normal affect. MDM: Patient seen and examined for rapid initial assessment. Vital signs reviewed. A comprehensive ED assessment and evaluation of the patient, analysis of test results and completion of the medical decision making process will be conducted by additional ED providers. *Note is created using voice recognition software and may contain spelling, syntax or grammatical errors. TRAVEL OUTSIDE OF THE [place] IN LAST 30 DAYS: No - Related Data Allergies/Adverse Reactions: No Known Allergies Allergy (Verified 10/14/18 11:48) Past Medical History - Social History Frequency of alcohol use: Social Drug Abuse: None - Past Medical History Cardiac Medical History: Reports: Hx Congestive Heart Failure, Hx Heart Attack, Hx Hypercholesterolemia, Hx Hypertension Pulmonary Medical History: Reports: Hx Bronchitis, Hx Pneumonia Renal/ Medical History: Denies: Hx Peritoneal Dialysis Past Surgical History: Reports: Hx Cardiac Catheterization - Immunizations Hx Diphtheria, Pertussis, Tetanus Vaccination: Yes Physical Exam - Vital signs Vitals: Temp Pulse Resp BP Pulse Ox 98.4 F 83 22 H 122/81 95 10/14/18 11:52 10/14/18 11:52 10/14/18 11:52 10/14/18 11:52 10/14/18 11:52 Course - Vital Signs Vital signs: Temp Pulse Resp BP Pulse Ox 98.4 F 83 22 H 122/81 95 10/14/18 11:52 10/14/18 11:52 10/14/18 11:52 10/14/18 11:52 10/14/18 11:52
[2018-10-14] MEDS ORDERED: METHYLPREDNISOLONE INJ 125 MG/2 ML SDV IV ONE (12:38)
[2018-10-14] MEDS ORDERED: IPRATROPIUM/ALBUTEROL 0.5-2.5 MG/3 ML AMPUL NEB ONE (12:38)
[2018-10-14 13:20] LABS: ABSOLUTE EOSINOPHILS # (AUTO) 0.2 10^3/uL (0.0-0.6); ABSOLUTE LYMPHOCYTES (AUTO) 1.6 10^3/uL (0.5-4.7); ABSOLUTE MONOCYTES (AUTO) 0.7 10^3/uL (0.1-1.4); ABSOLUTE NEUT (AUTO) 6.5 10^3/uL (1.7-8.2); BASOPHILS % (AUTO) 0.4 % (0-2); EOSINOPHILS % (AUTO) 2.6 % (0-6); HEMATOCRIT 52.8 % (37.9-51.0); HEMOGLOBIN 17.8 g/dL (13.5-17.0); LYMPHOCYTES % (AUTO) 17.9 % (13-45); MEAN CORPUSCULAR HEMOGLOBIN 30.6 pg (27.0-33.4); MEAN CORPUSCULAR HGB CONC 33.8 g/dL (32.0-36.0); MEAN CORPUSCULAR VOLUME 91 fl (80-97); MONOCYTES % (AUTO) 7.7 % (3-13); PLATELET COUNT 153 10^3/uL (150-450); RED BLOOD COUNT 5.82 10^6/uL (4.35-5.55); RED CELL DISTRIBUTION WIDTH 16.8 % (11.5-14.0); SEGMENTED NEUTROPHILS % (AUTO) 71.4 % (42-78); TOTAL CELLS COUNTED % (AUTO) 100 %; WHITE BLOOD COUNT 9.2 10^3/uL (4.0-10.5)
--- NOTE | 2018-10-14 13:27 | RADIOLOGY REPORT (SQ) ---
EXAM DESCRIPTION: CHEST SINGLE VIEW COMPLETED DATE/TIME: 10/14/2018 1:06 pm REASON FOR STUDY: shortness of breath COMPARISON: Chest films 07/04/2018, 07/05/2018 EXAM PARAMETERS: NUMBER OF VIEWS: One view. TECHNIQUE: Single frontal radiographic view of the chest acquired. RADIATION DOSE: NA LIMITATIONS: None. FINDINGS: LUNGS AND PLEURA: No opacities, masses or pneumothorax. No pleural effusion. MEDIASTINUM AND HILAR STRUCTURES: No masses. Contour normal. HEART AND VASCULAR STRUCTURES: Stable massive cardiomegaly BONES: No acute findings. HARDWARE: None in the chest. OTHER: No other significant finding. IMPRESSION: Stable cardiomegaly. No pulmonary vascular congestion or pulmonary edema TECHNICAL DOCUMENTATION: JOB ID: [id number] [employer]- All Rights Reserved Reading location - IP/workstation name: OFFICE [email or web address]
--- NOTE | 2018-10-14 13:31 | ER Document Report ---
ED General - General Chief Complaint: Breathing Difficulty Stated Complaint: DIFFICULTY BREATHING Time Seen by Provider: 10/14/18 12:28 TRAVEL OUTSIDE OF THE [place] IN LAST 30 DAYS: No - HPI Notes: Patient is a 57-year-old male with a history of congestive heart failure, hypertension, hyperlipidemia, and asthma who presents to the ED complaining of shortness of breath, dry cough, and wheezing over the last week. Patient states that he was evaluated in urgent care this past weekend and was told to double up on his Lasix as well as given breathing treatments and Solu-Medrol IM. Patient states that he continues to have symptoms despite the treatment. Denies drug allergies. Patient was told by his leather belt shaper, Dr. Mccabe, to come to the emergency department for evaluation. Patient reports being in congestive heart failure in July and was admitted at that time for similar symptoms. Patient states that his swelling was worse at that time, however. He is otherwise eating and drinking without any difficulties. He is urinating normally and having normal bowel movements. He has been taking Lasix 40 mg twice daily over the last couple days, but usually takes it once daily. He had an ejection fraction of 38% during his last hospital stay. Denies any headache , fever, neck pain, URI, sore throat, chest pain, palpitations, syncope, abdominal pain, nausea/vomiting/diarrhea, urinary retention, dysuria, hematuria , loss of control of bowel or bladder, numbness/tingling, or rash. - Related Data Allergies/Adverse Reactions: No Known Allergies Allergy (Verified 10/14/18 11:48) Past Medical History - Social History Smoking Status: Never Smoker Frequency of alcohol use: Social Drug Abuse: None Family History: Reviewed & Not Pertinent Patient has suicidal ideation: No Patient has homicidal ideation: No - Past Medical History Cardiac Medical History: Reports: Hx Congestive Heart Failure, Hx Heart Attack, Hx Hypercholesterolemia, Hx Hypertension Pulmonary Medical History: Reports: Hx Bronchitis, Hx Pneumonia Renal/ Medical History: Denies: Hx Peritoneal Dialysis Past Surgical History: Reports: Hx Cardiac Catheterization - Immunizations Hx Diphtheria, Pertussis, Tetanus Vaccination: Yes Review of Systems - Review of Systems -: Yes All other systems reviewed and negative Physical Exam - Vital signs Vitals: Temp Pulse Resp BP Pulse Ox 98.4 F 83 22 H 122/81 95 10/14/18 11:52 10/14/18 11:52 10/14/18 11:52 10/14/18 11:52 10/14/18 11:52 - Notes Notes: PHYSICAL EXAMINATION: GENERAL: Well-appearing, well-nourished and in no acute distress. A&Ox4. Answers questions appropriately. HEAD: Atraumatic, normocephalic. EYES: Pupils equal round and reactive to light, extraocular movements intact, sclera anicteric, conjunctiva are normal. ENT: Nares patent and without discharge. oropharynx clear without exudates. No tonsilar hypertrophy or erythema. Moist mucous membranes. NECK: Normal range of motion, supple without lymphadenopathy LUNGS: Dec breath sounds throughout with associated expiratory wheezing. HEART: Regular rate and rhythm without murmurs, rubs, gallops. ABDOMEN: Soft, nontender, nondistended abdomen. No guarding, no rebound. No masses appreciated. Normal bowel sounds present. No CVA tenderness bilaterally. Musculoskeletal: FROM to passive/active. Strength 5+/5. Abilio neg. No asymmetry to LE's. Extremities: 1+ pitting edema b/l LE's. Peripheral pulses 2+. Capillary refill less than 3 seconds. NEUROLOGICAL: Normal speech, normal gait. PSYCH: Normal mood, normal affect. SKIN: Warm, Dry, normal turgor, no rashes or lesions noted. Course - Re-evaluation Re-evalutation: 10/14/18 13:39 Dr. Mccabe called to review. He states that with chronic CHF patients, you may not see vascular congestion on CXR unless it is "really high." He states to look for JVD, but pt has a large and minimal neck. No obvious JVD noted. He recommends IV lasix and possible admission. 10/14/18 16:42 Patient is an afebrile, well-hydrated, 57-year-old male who presents to the ED with hypercapneic/hypoxic in the setting of acute on chronic respiratory failure , secondary to asthma/copd vs chf. Patient's oxygen saturation would drop to 88 -89% on room air. Patient was then started on 1-2 L nasal cannula which increased his oxygen to 92% on room air. I am trying to maintain 90-93% on room air at this time due to the hypercapneic. His lung sounds have slightly improved, but are still diminished b/l. CBC, CMP, cardiac enzymes/EKG, chest x- ray otherwise unremarkable. BiPAP has been ordered and we will admit the patient for further management as inpatient. Patient is in agreement with admission and plan. Dr. Morales, hospitalist, accepted admit to tele. - Vital Signs Vital signs: Temp Pulse Resp BP Pulse Ox 98.4 F 83 17 123/91 H 92 10/14/18 11:52 10/14/18 11:52 10/14/18 15:03 10/14/18 15:03 10/14/18 15:03 - Laboratory Result Diagrams: 10/14/18 12:59 10/14/18 13:36 Laboratory results interpreted by me: 10/14/18 10/14/18 10/14/18 12:59 13:36 13:36 RBC 5.82 H Hgb 17.8 H Hct 52.8 H RDW 16.8 H VBG pCO2 VBG HCO3 Chloride 94 L Carbon Dioxide 39 H Glucose 212 H NT-Pro-B Natriuret Pep 1460 H 10/14/18 16:29 RBC Hgb Hct RDW VBG pCO2 67.3 H* VBG HCO3 40.2 H Chloride Carbon Dioxide Glucose NT-Pro-B Natriuret Pep Discharge - Discharge Clinical Impression: CHF (congestive heart failure) Qualifiers: Heart failure type: unspecified Heart failure chronicity: acute Qualified Code( s): I50.9 - Heart failure, unspecified Acute and chronic respiratory failure Qualifiers: Respiratory failure complication: hypoxia and hypercapnia Qualified Code(s): J96.21 - Acute and chronic respiratory failure with hypoxia Condition: Stable Disposition: ADMITTED INPATIENT Admitting Provider: Hospitalist - Dr. Morales Unit Admitted: Telemetry
[2018-10-14] MEDS ORDERED: FUROSEMIDE INJ/PF 40 MG/4 ML SDV IV ONE (13:39)
[2018-10-14] MEDS: MAGNESIUM SULFATE/D5W 1 GM/100 ML RTUPB IV PRN ×2 (13:56→15:25)
[2018-10-14 14:19] LABS: ALANINE AMINOTRANSFERASE 26 U/L (21-72); ALBUMIN 3.8 g/dL (3.5-5.0); ALKALINE PHOSPHATASE 65 U/L (38-126); ANION GAP 9 (5-19); ASPARTATE AMINO TRANSFERASE 36 U/L (17-59); BILIRUBIN,DIRECT 0.4 mg/dL (0.0-0.4); BILIRUBIN,TOTAL 1.1 mg/dL (0.2-1.3); BLOOD UREA NITROGEN 17 mg/dL (7-20); CALCIUM 9.4 mg/dL (8.4-10.2); CARBON DIOXIDE 39 mmol/L (22-30); CHLORIDE 94 mmol/L (98-107); GLUCOSE 212 mg/dL (75-110); POTASSIUM 4.4 mmol/L (3.6-5.0); SODIUM 142.1 mmol/L (137-145); TOTAL PROTEIN 7.6 g/dL (6.3-8.2)
[2018-10-14 14:37] LABS: TROPONIN I 0.043 ng/mL
[2018-10-14] MEDS ORDERED: ALBUTEROL SULFATE 0.083% NEB 2.5 MG/3 ML AMPUL NEB ONE (15:22)
[2018-10-14 16:49] LABS: VENOUS BLOOD PH 7.39 (7.30-7.42)
[2018-10-14 16:50] LABS: VENOUS BLOOD BASE EXCESS 11.3 mmol/L; VENOUS BLOOD HCO3 40.2 mmol/L (20-32)
[2018-10-14 16:52] LABS: VENOUS BLOOD PCO2 67.3 mmHg (35-63)
[2018-10-14] MEDS ORDERED: FUROSEMIDE INJ/PF 100 MG/10 ML SDV IV SCH (18:00)
[2018-10-14] MEDS ORDERED: ALBUTEROL SULFATE HFA (90 MCG/PUFF) 200 PUFF/8.5 GM MDI IH PRN (18:44)
[2018-10-14] MEDS ORDERED: DEXTROMETHORPHAN PO SCH (18:45)
[2018-10-14] MEDS ORDERED: [UNRECOGNIZED DRUG - OTHER] PO SCH (18:45)
[2018-10-14] MEDS ORDERED: GUAIFENESIN PO SCH (18:45)
--- NOTE | 2018-10-14 18:46 | PDOC H&P ---
History of Present Illness Admission Date/PCP: 10/14/18 17:52 Patient complains of: Shortness of breath, wheezing History of Present Illness: ALEE GUTIERRES is a 57 year old male who presents to the emergency room due to wheezing and shortness of breath. This patient has coronary artery disease, CHF, hypertension. Patient was hospitalized in July due to acute on chronic systolic congestive heart failure. His ejection fraction was measured to be 38% . He was discharged on p.o. Lasix. He underwent stress test outpatient after discharge which was reportedly normal per patient report. He follows with Dr. Lyon. Patient started feeling sick about a week ago when he was out in the rain and felt like he had a cold. He continued to have progressive wheezing and shortness of breath and increasing lower extremity edema. He went to an urgent care about 3 days ago and was diagnosed with bronchitis. Patient was given DuoNeb and azithromycin and his Lasix dose was increased to twice a day instead of once daily. He followed up with Dr. Lyon today who recommended to go to the emergency room. Patient received IV Lasix, steroids and inhaled treatments and he feels a lot better. He also was treated with BiPAP due to severe hypercapnia. Currently he is on nasal cannula and eating his dinner. Past Medical History Cardiac Medical History: Reports: Congestive Heart Failure, Myocardial Infarction, Hyperlipidema, Hypertension Pulmonary Medical History: Reports: Bronchitis, Pneumonia Past Surgical History Past Surgical History: Reports: Cardiac Catheterization Social History Smoking Status: Former Smoker Family History Family History: Reviewed & Not Pertinent Parental Family History Reviewed: Yes Children Family History Reviewed: Yes Sibling(s) Family History Reviewed.: Yes Medication/Allergy Home Medications: Albuterol Sulfate [Proair HFA Inhalation Aerosol 8.5 gm MDI] 2 puff IH Q4HP PRN 10/14/18 Aspirin [Ecotrin 81 mg EC Tablet] 81 mg PO DAILY 10/14/18 Carvedilol [Coreg 3.125 mg Tablet] 3.125 mg PO Q12 10/14/18 Cyanocobalamin (Vitamin B-12) [Vitamin B-12 1000 mcg Tablet] 1,000 mcg PO DAILY 10/14/18 Furosemide [Lasix 40 mg Tablet] 40 mg PO DAILY 10/14/18 Guaifenesin/Dextromethorphan [Mucinex Dm ER 600-30 mg Tablet] 1 tab PO Q12 10/14 Ipratropium/Albuterol Sulfate [Duoneb 3 ml Ampul] 1 vial NEB QID 10/14/18 Losartan Potassium [Cozaar 50 mg Tablet] 50 mg PO DAILY 10/14/18 Bono-3S/Dha/Epa/Fish Oil [Bono-3 Fish Oil 1,000 mg Sfgl] 1 cap PO DAILY Potassium Chloride [Klor-Con 10 Meq Capsule ER] 10 meq PO DAILY 10/14/18 Pravastatin Sodium [Pravachol] 20 mg PO QHS 10/14/18 Allergies/Adverse Reactions: No Known Allergies Allergy (Verified 10/14/18 11:48) Review of Systems All systems: reviewed and no additional remarkable complaints except as stated Physical Exam Vital Signs: Temp Pulse Resp BP Pulse Ox 98.4 F 83 17 123/91 H 92 10/14/18 11:52 10/14/18 11:52 10/14/18 15:03 10/14/18 15:03 10/14/18 15:03 General appearance: PRESENT: cooperative, mild distress, obese Head exam: PRESENT: atraumatic, normocephalic Eye exam: PRESENT: conjunctiva pink, EOMI. ABSENT: conjunctival injection, nystagmus, scleral icterus Ear exam: ABSENT: bleeding, drainage Mouth exam: PRESENT: moist, neck supple, tongue midline Throat exam: ABSENT: post pharyngeal erythema, tonsillar exudate Neck exam: ABSENT: meningismus, tenderness, thyromegaly Respiratory exam: PRESENT: clear to auscultation gunjan, other - Patient received inhaled treatment. Per ER report patient had rhonchi and crackles.. ABSENT: accessory muscle use Cardiovascular exam: PRESENT: RRR. ABSENT: diastolic murmur, systolic murmur Pulses: PRESENT: normal radial pulses GI/Abdominal exam: PRESENT: distended, normal bowel sounds, soft. ABSENT: ascites, mass, tenderness Rectal exam: PRESENT: deferred Extremities exam: PRESENT: +1 edema. ABSENT: calf tenderness, joint swelling Musculoskeletal exam: PRESENT: ambulatory, normal inspection. ABSENT: deformity , tenderness Neurological exam: PRESENT: alert, altered, awake, oriented to person, oriented to place, oriented to time, oriented to situation Psychiatric exam: PRESENT: appropriate affect. ABSENT: agitated, anxious, homicidal ideation, suicidal ideation Skin exam: PRESENT: other - Chronic lower extremity skin discoloration Results Laboratory Results: Labs reviewed Impressions: Chest X-Ray 10/14/18 12:35 IMPRESSION: Stable cardiomegaly. No pulmonary vascular congestion or pulmonary edema Assessment & Plan - Diagnosis (1) Acute and chronic respiratory failure Qualifiers: Respiratory failure complication: hypoxia and hypercapnia Qualified Code(s) : J96.21 - Acute and chronic respiratory failure with hypoxia; J96.22 - Acute and chronic respiratory failure with hypercapnia; J96.22 - Acute and chronic respiratory failure with hypercapnia; J96.22 - Acute and chronic respiratory failure with hypercapnia Is this a current diagnosis for this admission?: Yes Plan: Continue BiPAP as needed Continue oxygen as needed Check ABG (2) CHF (congestive heart failure) Qualifiers: Heart failure type: systolic Heart failure chronicity: acute on chronic Qualified Code(s): I50.23 - Acute on chronic systolic (congestive) heart failure Is this a current diagnosis for this admission?: Yes Plan: Patient has coronary artery disease who underwent cardiac catheterization about 30 years ago He was recently admitted due to acute on chronic congestive heart failure in July His EF was noted to be 38%. Follow-up discharge stress test was reportedly unremarkable He denies chest pain Will admit to telemetry unit, check I's and O's, daily weight IV Lasix 40 mg twice daily, update echocardiogram, check serial troponin Continue Coreg and losartan Consult cardiology (3) Acute bronchitis Is this a current diagnosis for this admission?: Yes Plan: Continue azithromycin, DuoNeb, Robitussin add prednisone 20 mg daily (4) Dyslipidemia Is this a current diagnosis for this admission?: Yes Plan: Continue statin, check lipid profile (5) Hypertension Is this a current diagnosis for this admission?: Yes Plan: Continue home medications, monitor blood pressure (6) Lower extremity edema Is this a current diagnosis for this admission?: Yes Plan: Lasix as above (7) Shortness of breath Is this a current diagnosis for this admission?: Yes Plan: Due to CHF and possibly bronchitis
[2018-10-14] MEDS: POTASSIUM CHLORIDE 10 MEQ CAPSULE.ER PO SCH ×2 (19:31→22:19)
[2018-10-14] MEDS: LOSARTAN POTASSIUM 50 MG TABLET PO SCH ×2 (19:32→22:19)
[2018-10-14] MEDS: PREDNISONE 10 MG TABLET PO SCH (19:32)
[2018-10-14] MEDS: IPRATROPIUM/ALBUTEROL 0.5-2.5 MG/3 ML AMPUL NEB SCH ×3 (19:32→23:37)
[2018-10-14] MEDS: AZITHROMYCIN 250 MG TABLET PO SCH (19:32)
[2018-10-14] MEDS: ASPIRIN 81 MG TABLET, ENT COATED PO SCH ×2 (19:32→22:19)
[2018-10-14] MEDS: CARVEDILOL 6.25 MG TABLET PO SCH ×2 (19:33→22:25)
[2018-10-14 21:58] LABS: A TYPE INFLUENZA AG NEGATIVE (NEGATIVE); B INFLUENZA AG NEGATIVE (NEGATIVE)
[2018-10-14 22:26] LABS: ARTERIAL BLOOD H2CO3 1.51 mmol/L (1.05-1.35); ARTERIAL BLOOD PCO2 50.1 mmHg (35-45); ARTERIAL BLOOD PH 7.42 (7.35-7.45); ARTERIAL BLOOD PO2 77.1 mmHg (80-100)
[2018-10-14] MEDS: ATORVASTATIN CALCIUM 40 MG TABLET PO SCH (22:26)
[2018-10-14 22:27] LABS: ARTERIAL BLOOD BASE EXCESS 5.5 mmol/L; ARTERIAL BLOOD FIO2 28%; ARTERIAL BLOOD HCO3 31.5 mmol/L (20-24); ARTERIAL BLOOD O2 SATURATION 95.4 % (94-98)
[2018-10-15] MEDS: IPRATROPIUM/ALBUTEROL 0.5-2.5 MG/3 ML AMPUL NEB SCH ×5 (03:17→20:20)
[2018-10-15] MEDS: CARVEDILOL 6.25 MG TABLET PO SCH ×2 (06:37→18:02)
--- NOTE | 2018-10-15 07:18 | EKG REPORT ---
SEVERITY:- ABNORMAL ECG - SINUS RHYTHM MULTIFORM VENTRICULAR PREMATURE COMPLEXES FIRST DEGREE AV BLOCK LEFT ATRIAL ABNORMALITY NONSPECIFIC IVCD WITH LAD CONSIDER LEFT VENTRICULAR HYPERTROPHY : Confirmed by: Stephanie Huang 15-Oct-2018 07:16:56
--- NOTE | 2018-10-15 07:18 | EKG REPORT ---
SEVERITY:- ABNORMAL ECG - SINUS RHYTHM VENTRICULAR PREMATURE COMPLEX LEFT ATRIAL ABNORMALITY NONSPECIFIC IVCD WITH LAD ABNRM R PROG, CONSIDER ASMI OR LEAD PLACEMENT CONSIDER LEFT ARM R ARM LEAD REVERSAL : Confirmed by: Stephanie Huang 15-Oct-2018 07:18:04
[2018-10-15 07:57] LABS: ABSOLUTE LYMPHOCYTES (AUTO) 0.7 10^3/uL (0.5-4.7); ABSOLUTE MONOCYTES (AUTO) 0.3 10^3/uL (0.1-1.4); ABSOLUTE NEUT (AUTO) 7.9 10^3/uL (1.7-8.2); BASOPHILS % (AUTO) 0.3 % (0-2); HEMATOCRIT 52.2 % (37.9-51.0); HEMOGLOBIN 17.3 g/dL (13.5-17.0); LYMPHOCYTES % (AUTO) 7.4 % (13-45); MEAN CORPUSCULAR HEMOGLOBIN 29.9 pg (27.0-33.4); MEAN CORPUSCULAR HGB CONC 33.1 g/dL (32.0-36.0); MEAN CORPUSCULAR VOLUME 90 fl (80-97); MONOCYTES % (AUTO) 3.6 % (3-13); PLATELET COUNT 113 10^3/uL (150-450); RED BLOOD COUNT 5.77 10^6/uL (4.35-5.55); RED CELL DISTRIBUTION WIDTH 16.1 % (11.5-14.0); SEGMENTED NEUTROPHILS % (AUTO) 88.7 % (42-78); TOTAL CELLS COUNTED % (AUTO) 100 %; WHITE BLOOD COUNT 8.9 10^3/uL (4.0-10.5)
[2018-10-15 08:13] LABS: ANION GAP 11 (5-19); BLOOD UREA NITROGEN 17 mg/dL (7-20); CALCIUM 9.3 mg/dL (8.4-10.2); CARBON DIOXIDE 39 mmol/L (22-30); CHLORIDE 93 mmol/L (98-107); CHOLESTEROL 147.22 mg/dL (0-200); GLUCOSE 240 mg/dL (75-110); POTASSIUM 4.7 mmol/L (3.6-5.0); SODIUM 142.7 mmol/L (137-145); TRIGLYCERIDES 109 mg/dL (<150)
[2018-10-15 08:24] LABS: DIRECT LDL 107 mg/dL (<100)
[2018-10-15 08:25] LABS: TROPONIN I 0.04 ng/mL
[2018-10-15] MEDS: PREDNISONE 10 MG TABLET PO SCH (10:25)
[2018-10-15] MEDS: POTASSIUM CHLORIDE 10 MEQ CAPSULE.ER PO SCH (10:25)
[2018-10-15] MEDS: ASPIRIN 81 MG TABLET, ENT COATED PO SCH (10:25)
[2018-10-15] MEDS: ENOXAPARIN SODIUM INJ 40 MG/0.4 ML DISP.SYRIN SUBCUT SCH (10:26)
--- NOTE | 2018-10-15 11:57 | PDOC PROGRESS REPORT ---
Subjective Progress Note for:: 10/15/18 Subjective:: Patient is improving. Responded very well to the IV diuresis. His weight decreased from 298-284. His hemoglobin A1c is 6.6 and LDL is 107. He is off BiPAP and stable on nasal cannula oxygen. His ABG shows improvement of PCO2 from 67-50. Reason For Visit: HEART FAILURE Physical Exam Vital Signs: Temp Pulse Resp BP Pulse Ox 97.4 F 87 18 120/91 H 95 10/15/18 07:18 10/15/18 08:21 10/15/18 08:21 10/15/18 07:18 10/15/18 08:21 Intake & Output 10/14/18 10/15/18 10/16/18 06:59 06:59 06:59 Intake Total 591 Balance 591 Weight 284 lb 9.868 oz General appearance: PRESENT: no acute distress, cooperative, obese Head exam: PRESENT: atraumatic, normocephalic Eye exam: PRESENT: EOMI. ABSENT: conjunctival injection Ear exam: ABSENT: bleeding, drainage Neck exam: ABSENT: meningismus, tenderness Respiratory exam: PRESENT: crackles, rhonchi. ABSENT: accessory muscle use Cardiovascular exam: PRESENT: RRR. ABSENT: diastolic murmur, systolic murmur Pulses: PRESENT: normal radial pulses GI/Abdominal exam: PRESENT: normal bowel sounds, soft. ABSENT: ascites, mass, tenderness Rectal exam: PRESENT: deferred Extremities exam: PRESENT: +1 edema Neurological exam: PRESENT: alert, altered, awake, oriented to person, oriented to place, oriented to time, oriented to situation Psychiatric exam: PRESENT: appropriate affect. ABSENT: agitated, anxious, homicidal ideation, suicidal ideation Skin exam: PRESENT: other - Chronic lower extremity discoloration bilaterally Results Laboratory Results: 10/15/18 07:43 10/15/18 07:43 10/14/18 10/15/18 10/15/18 21:55 07:43 07:43 WBC 8.9 RBC 5.77 H Hgb 17.3 H Hct 52.2 H MCV 90 MCH 29.9 MCHC 33.1 RDW 16.1 H Plt Count 113 L Seg Neutrophils % 88.7 H Lymphocytes % 7.4 L Monocytes % 3.6 Eosinophils % 0.0 Basophils % 0.3 Absolute Neutrophils 7.9 Absolute Lymphocytes 0.7 Absolute Monocytes 0.3 Absolute Eosinophils 0.0 Absolute Basophils 0.0 Carbonic Acid 1.51 H HCO3/H2CO3 Ratio 20:1 ABG pH 7.42 ABG pCO2 50.1 H ABG pO2 77.1 L ABG HCO3 31.5 H ABG O2 Saturation 95.4 ABG Base Excess 5.5 FiO2 28% Sodium 142.7 Potassium 4.7 Chloride 93 L Carbon Dioxide 39 H Anion Gap 11 BUN 17 Creatinine 0.61 Est GFR ( Amer) > 60 Est GFR (Non-Af Amer) > 60 Glucose 240 H Calcium 9.3 Magnesium 2.2 Triglycerides 109 Cholesterol 147.22 LDL Cholesterol Direct 107 H VLDL Cholesterol 22.0 HDL Cholesterol 29 L 10/14/18 10/15/18 10/15/18 19:29 01:54 07:43 Troponin I 0.048 0.036 0.040 NT-Pro-B Natriuret Pep 1930 H Impressions: Chest X-Ray 10/14/18 12:35 IMPRESSION: Stable cardiomegaly. No pulmonary vascular congestion or pulmonary edema Assessment & Plan - Diagnosis (1) Acute and chronic respiratory failure Qualifiers: Respiratory failure complication: hypoxia and hypercapnia Qualified Code(s) : J96.21 - Acute and chronic respiratory failure with hypoxia; J96.22 - Acute and chronic respiratory failure with hypercapnia; J96.22 - Acute and chronic respiratory failure with hypercapnia; J96.22 - Acute and chronic respiratory failure with hypercapnia Is this a current diagnosis for this admission?: Yes Plan: Patient is off BiPAP now he is stable on nasal cannula His PCO2 improved from 67-50 (2) CHF (congestive heart failure) Qualifiers: Heart failure type: systolic Heart failure chronicity: acute on chronic Qualified Code(s): I50.23 - Acute on chronic systolic (congestive) heart failure Is this a current diagnosis for this admission?: Yes Plan: Patient has coronary artery disease who underwent cardiac catheterization about 30 years ago He was recently admitted due to acute on chronic congestive heart failure in July His EF was noted to be 38%. Follow-up discharge stress test was reportedly unremarkable Still denies chest pain continue to monitor I's and O's, daily weight Continue IV Lasix 40 mg twice daily, follow repeat echocardiogram Serial troponin pattern shows chronic mildly elevated levels Continue Coreg and losartan Consulted cardiology (3) Acute bronchitis Is this a current diagnosis for this admission?: Yes Plan: Continue azithromycin, DuoNeb, Robitussin Decrease prednisone dose to 10 mg daily for another day or 2 due to elevated glucose levels (4) Dyslipidemia Is this a current diagnosis for this admission?: Yes Plan: LDL is 107 Continue atorvastatin 40 mg daily (5) Hypertension Is this a current diagnosis for this admission?: Yes Plan: Continue current home medications, monitor blood pressure (6) Lower extremity edema Is this a current diagnosis for this admission?: Yes Plan: Improved with diuresis (7) Shortness of breath Is this a current diagnosis for this admission?: Yes Plan: Due to CHF and possibly bronchitis Currently improved He is off BiPAP and stable to nasal cannula oxygen (8) Diabetes Qualifiers: Diabetes mellitus type: type 2 Diabetes mellitus snf insulin use: without performing artist use Diabetes mellitus complication status: without complication Qualified Code(s): E11.9 - Type 2 diabetes mellitus without complications Is this a current diagnosis for this admission?: Yes Plan: This is new onset His hemoglobin A1c is 6.6 We will start metformin 500 mg twice daily Changes diet to low calorie diet
[2018-10-15] MEDS ORDERED: FUROSEMIDE 40 MG TABLET ONE (12:43)
[2018-10-15] MEDS: AZITHROMYCIN 250 MG TABLET PO SCH (12:49)
[2018-10-15] MEDS: FUROSEMIDE 40 MG TABLET PO SCH (18:02)
[2018-10-15] MEDS: METFORMIN HCL 500 MG TABLET PO SCH ×2 (18:02→18:12)
[2018-10-15] MEDS: LOSARTAN POTASSIUM 50 MG TABLET PO SCH (18:03)
[2018-10-15] MEDS ORDERED: FUROSEMIDE INJ/PF 40 MG/4 ML SDV IV SCH (18:30)
--- NOTE | 2018-10-15 20:15 | PDOC CONSULTATION ---
Consultation Consult Date: 10/14/18 Attending physician:: DEWAYNE PARMAR Consult reason:: Cardiomyopathy History of Present Illness Admission Date/PCP: 10/14/18 17:52 Patient complains of: Shortness of breath History of Present Illness: Patient was seen on evening rounds yesterday but somehow dictation got missed. Patient claims that he sees Dr. Lyon and had a stress test performed recently which was noted to be negative. He was seen in the office on the day of admission and was noted to be wheezing and short of breath therefore was sent to the emergency room to be admitted from there. Patient describes remote history of myocardial infarction. He denies any recent heart catheterization. This patient has coronary artery disease, CHF, hypertension. Patient was hospitalized in July due to acute on chronic systolic congestive heart failure. His ejection fraction was measured to be 38%. Patient started feeling sick about a week ago when he was out in the rain and felt like he had a cold. He continued to have progressive wheezing and shortness of breath and increasing lower extremity edema. He went to an urgent care about 3 days ago and was diagnosed with bronchitis. Patient was given DuoNeb and azithromycin and his Lasix dose was increased to twice a day instead of once daily. Patient was noted to have acute CHF and was also treated with bilevel therapy. Currently he is much improved and resting comfortably without any oxygen. Past Medical History Cardiac Medical History: Reports: Congestive Heart Failure, Myocardial Infarction, Hyperlipidema, Hypertension Pulmonary Medical History: Reports: Bronchitis, Pneumonia Past Surgical History Past Surgical History: Reports: Cardiac Catheterization Social History Information Source: Patient Smoking Status: Former Smoker Frequency of Alcohol Use: None Hx Recreational Drug Use: No Hx Prescription Drug Abuse: No - Advance Directive Resuscitation Status: Full Code Family History Family History: Hypertension Parental Family History Reviewed: Yes Children Family History Reviewed: Yes Sibling(s) Family History Reviewed.: Yes Medication/Allergy Home Medications: Albuterol Sulfate [Proair HFA Inhalation Aerosol 8.5 gm MDI] 2 puff IH Q4HP PRN 10/14/18 Aspirin [Ecotrin 81 mg EC Tablet] 81 mg PO DAILY 10/14/18 Cyanocobalamin (Vitamin B-12) [Vitamin B-12 1000 mcg Tablet] 1,000 mcg PO DAILY 10/14/18 Furosemide [Lasix 40 mg Tablet] 40 mg PO DAILY 10/14/18 Guaifenesin/Dextromethorphan [Mucinex Dm ER 600-30 mg Tablet] 1 tab PO Q12 10/14 Ipratropium/Albuterol Sulfate [Duoneb 3 ml Ampul] 1 vial NEB QID 10/14/18 Losartan Potassium [Cozaar 50 mg Tablet] 50 mg PO DAILY 10/14/18 Potassium Chloride [Klor-Con 10 Meq Capsule ER] 10 meq PO DAILY 10/14/18 Pravastatin Sodium [Pravachol] 20 mg PO QHS 10/14/18 Carvedilol [Coreg 3.125 mg Tablet] 3.125 mg PO QHS 10/15/18 Fluticasone Propionate [Flonase Nasal [place] 50 Mcg/[place] 16 gm] 2 spray NASL DAILYP PRN 10/15/18 Ibuprofen [Motrin 600 mg Tablet] 600 mg PO Q6HP PRN 10/15/18 Multivitamin/Iron/Folic Acid [Centrum Adults Tablet] 1 tab PO DAILY 10/15/18 Rhome-3/Dha/Epa/Fish Oil [Fish Oil 500 mg Softgel] 1 each PO DAILY 10/15/18 Allergies/Adverse Reactions: No Known Allergies Allergy (Verified 10/14/18 11:48) Review of Systems Review of Systems: Please see history of present illness and past medical history as wall. Constitutional: No fever or chills reported. Recent cough and cold symptoms. Head : No recent chronic headaches, recent head injury. Eyes: No recent eye pain, diplopia, redness, discharge, acute visual changes. Ears: No recent chronic ear pain, acute hearing loss, ear discharge. Oral cavity: No recent ulcerations, bleeding, oral cavity discomfort. Neck: No recent acute neck pain reported. Hematologic: No recent easy bruising or bleeding. Lymphatic: No recent lymph node enlargement reported. Cardiovascular system review: See history of present illness. Respiratory system review: No hemoptysis or blood clots in the lungs reported. Shortness of breath on exertion Gastrointestinal system review: Negative for any recent acute hematemesis, melena. Genitourinary system review: No recent acute or chronic hematuria, flank pain, UTI etc. reported. Skin system review: Negative for any recent abnormal bruising, no rash, no pruritus reported. Neurologic: No prior history of strokes, mini strokes, seizure disorder. Psychologic: No history of major psychosis or major depression reported. Musculoskeletal: Minor aches and pains reported. No acute joint swelling reported. Endocrine: No recent polyuria, polydipsia, recent heat or cold intolerance. Physical Exam Vital Signs: Temp Pulse Resp BP Pulse Ox 98.0 F 85 14 106/64 95 10/15/18 15:17 10/15/18 15:59 10/15/18 15:59 10/15/18 15:17 10/15/18 15:59 Intake & Output 10/14/18 10/15/18 10/16/18 06:59 06:59 06:59 Intake Total 975 Balance 975 Weight 129.1 kg Exam: GENERAL: well-nourished and in no acute distress. Alert and oriented x3 HEAD: Atraumatic, normocephalic. EYES: KRISTIAN, sclera anicteric, conjunctiva are normal. ENT: Moist mucous membranes. No oral ulcerations or bleeding gums noted. No obvious ear, nose or throat abnormalities noted. NECK: supple without lymphadenopathy. Trachea is central. No cervical or axillary lymphadenopathy noted. Carotids are 2+, JVD WNL LUNGS: Bilateral coarse wheezes rales or rhonchi noted. No significant dullness noted on percussion. CHEST: Palpation of the chest wall shows no significant chest wall tenderness. HEART: [place] [employer] WORK, No PSH, 1/6 KARLA aortic area, 1/6 lau systolic murmur mitral area, no rubs, no gallops. ABDOMEN: Soft, no significant tenderness appreciated, normoactive bowel sounds. No guarding, no rebound. No rigidity noted . No masses appreciated. EXTREMITIES: Pedal pulses are 1-2+, no calf tenderness noted. No clubbing or cyanosis. Trace pedal edema noted NEUROLOGICAL: Focused neurological exam showed no significant neurologic deficit. Normal speech, no focal weakness appreciated. PSYCH: Normal mood, normal affect. Judgment and insight within normal limits. SKIN: No significant ecchymosis, skin is noted to be warm. MUSCULOSKELETAL EXAM: No significant acute joint swelling noted. Results Laboratory Results: 10/15/18 07:43 10/15/18 07:43 10/14/18 10/15/18 10/15/18 21:55 07:43 07:43 WBC 8.9 RBC 5.77 H Hgb 17.3 H Hct 52.2 H MCV 90 MCH 29.9 MCHC 33.1 RDW 16.1 H Plt Count 113 L Seg Neutrophils % 88.7 H Lymphocytes % 7.4 L Monocytes % 3.6 Eosinophils % 0.0 Basophils % 0.3 Absolute Neutrophils 7.9 Absolute Lymphocytes 0.7 Absolute Monocytes 0.3 Absolute Eosinophils 0.0 Absolute Basophils 0.0 Carbonic Acid 1.51 H HCO3/H2CO3 Ratio 20:1 ABG pH 7.42 ABG pCO2 50.1 H ABG pO2 77.1 L ABG HCO3 31.5 H ABG O2 Saturation 95.4 ABG Base Excess 5.5 FiO2 28% Sodium 142.7 Potassium 4.7 Chloride 93 L Carbon Dioxide 39 H Anion Gap 11 BUN 17 Creatinine 0.61 Est GFR ( Amer) > 60 Est GFR (Non-Af Amer) > 60 Glucose 240 H Calcium 9.3 Magnesium 2.2 Triglycerides 109 Cholesterol 147.22 LDL Cholesterol Direct 107 H VLDL Cholesterol 22.0 HDL Cholesterol 29 L 10/14/18 10/15/18 10/15/18 19:29 01:54 07:43 Troponin I 0.048 0.036 0.040 NT-Pro-B Natriuret Pep 1930 H EKG Comments: Sinus rhythm, left axis deviation, no acute ST-T wave changes are noted. Impressions: Chest X-Ray 10/14/18 12:35 IMPRESSION: Stable cardiomegaly. No pulmonary vascular congestion or pulmonary edema Assessment & Plan - Diagnosis (1) CHF (congestive heart failure) Qualifiers: Heart failure type: systolic Heart failure chronicity: acute on chronic Qualified Code(s): I50.23 - Acute on chronic systolic (congestive) heart failure Is this a current diagnosis for this admission?: Yes (2) Cardiomyopathy Qualifiers: Cardiomyopathy type: unspecified Qualified Code(s): I42.9 - Cardiomyopathy , unspecified Is this a current diagnosis for this admission?: Yes (3) Acute bronchitis Qualifiers: Bronchitis organism: unspecified organism Qualified Code(s): J20.9 - Acute bronchitis, unspecified Is this a current diagnosis for this admission?: Yes (4) Diabetes Qualifiers: Diabetes mellitus type: type 2 Diabetes mellitus terminal operations supervisor insulin use: without care home use Diabetes mellitus complication status: without complication Qualified Code(s): E11.9 - Type 2 diabetes mellitus without complications Is this a current diagnosis for this admission?: Yes (5) Dyslipidemia Is this a current diagnosis for this admission?: Yes (6) Hypertension Qualifiers: Hypertension type: essential hypertension Qualified Code(s): I10 - Essential (primary) hypertension Is this a current diagnosis for this admission?: Yes - Notes Notes: Congestive heart failure: Systolic and possibly with significant diastolic contribution, acute on chronic. Continue with IV Lasix. Could be switched to p.o. tomorrow. Acute bronchitis: Continue with antibiotics and bronchodilator therapy as needed. Cardiomyopathy: Patient noted to be on carvedilol and losartan therapy which should be continued. May consider entresto therapy. Diabetes: Currently being well managed by the hospitalist. Dyslipidemia: Recommend high potency statin therapy. Hypertension: Blood pressure goal should be 135/85 or less in this gentleman. Obesity: Patient will benefit from gradual weight loss. This was recommended to the patient. Sleep disordered breathing: Patient has high likelihood of having underlying sleep apnea syndrome. Patient will benefit from referral and treatment for this condition. - Time Time Spent: 30 to 50 Minutes - More than 50% of the time spent coordinating care , discussing management plans with involved caregivers. Management plans discussed with involved personnels. Medical decision making was of moderate to high complexity, patient's has multiple comorbidities. Medications reviewed and adjusted accordingly: Yes
--- NOTE | 2018-10-15 20:16 | PDOC PROGRESS REPORT ---
Subjective Progress Note for:: 10/15/18 Subjective:: Patient seems to be doing better with gradual improvement. Pt is denying any chest arm or neck discomfort. Patient denying any PND, orthopnea. Patient denied any sustained palpitations, dizziness, syncope, near syncope. Patient denying any fever chills. Patient denying any other significant discomfort. Patient is maintaining sinus rhythm. Review of systems: Rest review of systems negative. Medications: Medications have been reviewed. Reason For Visit: HEART FAILURE Physical Exam Vital Signs: Temp Pulse Resp BP Pulse Ox 98.0 F 85 14 106/64 95 10/15/18 15:17 10/15/18 15:59 10/15/18 15:59 10/15/18 15:17 10/15/18 15:59 Intake & Output 10/14/18 10/15/18 10/16/18 06:59 06:59 06:59 Intake Total 975 Balance 975 Weight 129.1 kg Exam: GENERAL: well-nourished and in no acute distress. Alert and oriented x3 HEAD: Atraumatic, normocephalic. EYES: KRISTIAN, sclera anicteric, conjunctiva are normal. ENT: Moist mucous membranes. No oral ulcerations or bleeding gums noted. No obvious ear, nose or throat abnormalities noted. NECK: supple without lymphadenopathy. Trachea is central. No cervical or axillary lymphadenopathy noted. Carotids are 2+, JVD WNL LUNGS: Few coarse wheezes rales or rhonchi noted. No significant dullness noted on percussion. CHEST: Palpation of the chest wall shows no significant chest wall tenderness. HEART: [place] [employer]ING [employer], No PSH, 1/6 KARLA aortic area, 1/6 lau systolic murmur mitral area, no rubs, no gallops. ABDOMEN: Soft, no significant tenderness appreciated, normoactive bowel sounds. No guarding, no rebound. No rigidity noted . No masses appreciated. EXTREMITIES: Pedal pulses are 1-2+, no calf tenderness noted. No clubbing or cyanosis. negative pedal edema noted NEUROLOGICAL: Focused neurological exam showed no significant neurologic deficit. Normal speech, no focal weakness appreciated. PSYCH: Normal mood, normal affect. Judgment and insight within normal limits. SKIN: No significant ecchymosis, skin is noted to be warm. MUSCULOSKELETAL EXAM: No significant acute joint swelling noted. Results Laboratory Results: 10/15/18 07:43 10/15/18 07:43 10/14/18 10/15/18 10/15/18 21:55 07:43 07:43 WBC 8.9 RBC 5.77 H Hgb 17.3 H Hct 52.2 H MCV 90 MCH 29.9 MCHC 33.1 RDW 16.1 H Plt Count 113 L Seg Neutrophils % 88.7 H Lymphocytes % 7.4 L Monocytes % 3.6 Eosinophils % 0.0 Basophils % 0.3 Absolute Neutrophils 7.9 Absolute Lymphocytes 0.7 Absolute Monocytes 0.3 Absolute Eosinophils 0.0 Absolute Basophils 0.0 Carbonic Acid 1.51 H HCO3/H2CO3 Ratio 20:1 ABG pH 7.42 ABG pCO2 50.1 H ABG pO2 77.1 L ABG HCO3 31.5 H ABG O2 Saturation 95.4 ABG Base Excess 5.5 FiO2 28% Sodium 142.7 Potassium 4.7 Chloride 93 L Carbon Dioxide 39 H Anion Gap 11 BUN 17 Creatinine 0.61 Est GFR ( Amer) > 60 Est GFR (Non-Af Amer) > 60 Glucose 240 H Calcium 9.3 Magnesium 2.2 Triglycerides 109 Cholesterol 147.22 LDL Cholesterol Direct 107 H VLDL Cholesterol 22.0 HDL Cholesterol 29 L 10/14/18 10/15/18 10/15/18 19:29 01:54 07:43 Troponin I 0.048 0.036 0.040 NT-Pro-B Natriuret Pep 1930 H Impressions: Chest X-Ray 10/14/18 12:35 IMPRESSION: Stable cardiomegaly. No pulmonary vascular congestion or pulmonary edema Assessment & Plan - Diagnosis (1) CHF (congestive heart failure) Qualifiers: Heart failure type: systolic Heart failure chronicity: acute on chronic Qualified Code(s): I50.23 - Acute on chronic systolic (congestive) heart failure Is this a current diagnosis for this admission?: Yes (2) Cardiomyopathy Qualifiers: Cardiomyopathy type: unspecified Qualified Code(s): I42.9 - Cardiomyopathy , unspecified Is this a current diagnosis for this admission?: Yes (3) Acute bronchitis Qualifiers: Bronchitis organism: unspecified organism Qualified Code(s): J20.9 - Acute bronchitis, unspecified Is this a current diagnosis for this admission?: Yes (4) Diabetes Qualifiers: Diabetes mellitus type: type 2 Diabetes mellitus [facility] insulin use: without [facility] use Diabetes mellitus complication status: without complication Qualified Code(s): E11.9 - Type 2 diabetes mellitus without complications Is this a current diagnosis for this admission?: Yes (5) Dyslipidemia Is this a current diagnosis for this admission?: Yes (6) Hypertension Qualifiers: Hypertension type: essential hypertension Qualified Code(s): I10 - Essential (primary) hypertension Is this a current diagnosis for this admission?: Yes - Notes Notes: Patient generally much improved. Recommendations are same as from yesterday. Patient being switched to p.o. Lasix at 40 mg p.o. twice daily. Further adjustment can be made as an outpatient. Patient has been recommended to schedule a sleep study. Acute bronchitis: Continue with antibiotics and bronchodilator therapy as needed. Cardiomyopathy: Patient noted to be on carvedilol and losartan therapy which should be continued. May consider entresto therapy. However this can be done as an outpatient depending on patient's insurance coverage. Diabetes: Currently being well managed by the hospitalist. Dyslipidemia: Recommend high potency statin therapy. Hypertension: Blood pressure goal should be 135/85 or less in this gentleman. Obesity: Patient will benefit from gradual weight loss. This was recommended to the patient. Sleep disordered breathing: Patient has high likelihood of having underlying sleep apnea syndrome. Patient will benefit from referral and treatment for this condition. - Time Time with patient: Greater than 35 minutes - CODE STATUS was discussed, patient remains full code. Surrogate decision-maker unchanged. Multiple medical problems were addressed. More than 50% of the time spent coordinating care, discussing management plans with involved caregivers. Management plans discussed with involved personnels. Medical decision making was of moderate to high complexity, patient's has multiple comorbidities. Medications reviewed and adjusted accordingly: Yes
[2018-10-15] MEDS: ATORVASTATIN CALCIUM 40 MG TABLET PO SCH (23:05)
[2018-10-16] MEDS: IPRATROPIUM/ALBUTEROL 0.5-2.5 MG/3 ML AMPUL NEB SCH ×3 (00:07→08:27)
[2018-10-16 06:02] LABS: ABSOLUTE LYMPHOCYTES (AUTO) 1.4 10^3/uL (0.5-4.7); ABSOLUTE MONOCYTES (AUTO) 0.7 10^3/uL (0.1-1.4); ABSOLUTE NEUT (AUTO) 8.6 10^3/uL (1.7-8.2); BASOPHILS % (AUTO) 0.3 % (0-2); EOSINOPHILS % (AUTO) 0.2 % (0-6); HEMATOCRIT 49.9 % (37.9-51.0); HEMOGLOBIN 16.7 g/dL (13.5-17.0); LYMPHOCYTES % (AUTO) 12.7 % (13-45); MEAN CORPUSCULAR HEMOGLOBIN 30.2 pg (27.0-33.4); MEAN CORPUSCULAR HGB CONC 33.4 g/dL (32.0-36.0); MEAN CORPUSCULAR VOLUME 91 fl (80-97); MONOCYTES % (AUTO) 6.9 % (3-13); PLATELET COUNT 115 10^3/uL (150-450); RED BLOOD COUNT 5.51 10^6/uL (4.35-5.55); RED CELL DISTRIBUTION WIDTH 16.3 % (11.5-14.0); SEGMENTED NEUTROPHILS % (AUTO) 79.9 % (42-78); TOTAL CELLS COUNTED % (AUTO) 100 %; WHITE BLOOD COUNT 10.7 10^3/uL (4.0-10.5)
[2018-10-16 06:24] LABS: ANION GAP 10 (5-19); BLOOD UREA NITROGEN 18 mg/dL (7-20); CARBON DIOXIDE 37 mmol/L (22-30); CHLORIDE 94 mmol/L (98-107); GLUCOSE 214 mg/dL (75-110); POTASSIUM 4.8 mmol/L (3.6-5.0); SODIUM 141.3 mmol/L (137-145)
[2018-10-16] MEDS: CARVEDILOL 6.25 MG TABLET PO SCH (06:47)
--- NOTE | 2018-10-16 09:00 | EKG REPORT ---
SEVERITY:- ABNORMAL ECG - SINUS RHYTHM VENTRICULAR PREMATURE COMPLEX FIRST DEGREE AV BLOCK LEFT ATRIAL ABNORMALITY NONSPECIFIC IVCD WITH LAD BORDERLINE R WAVE PROGRESSION, ANTERIOR LEADS : Confirmed by: Stephanie Huang 16-Oct-2018 09:00:23
[2018-10-16] MEDS: FUROSEMIDE 40 MG TABLET PO SCH (09:01)
[2018-10-16] MEDS: METFORMIN HCL 500 MG TABLET PO SCH (09:01)
[2018-10-16] MEDS: POTASSIUM CHLORIDE 10 MEQ CAPSULE.ER PO SCH (09:01)
[2018-10-16] MEDS: ASPIRIN 81 MG TABLET, ENT COATED PO SCH (09:02)
[2018-10-16] MEDS: AZITHROMYCIN 250 MG TABLET PO SCH (09:02)
[2018-10-16] MEDS: ENOXAPARIN SODIUM INJ 40 MG/0.4 ML DISP.SYRIN SUBCUT SCH (09:02)
--- NOTE | 2018-10-16 09:19 | PDOC DISCHARGE SUMMARY ---
General - Admit/Disc Date/PCP Admission Date/Primary Care Provider: 10/14/18 17:52 Discharge Date: 10/16/18 - Discharge Diagnosis (1) Acute and chronic respiratory failure Is this a current diagnosis for this admission?: Yes (2) CHF (congestive heart failure) Is this a current diagnosis for this admission?: Yes (3) Acute bronchitis Is this a current diagnosis for this admission?: Yes (4) Dyslipidemia Is this a current diagnosis for this admission?: Yes (5) Hypertension Is this a current diagnosis for this admission?: Yes (6) Lower extremity edema Is this a current diagnosis for this admission?: Yes (7) Shortness of breath Is this a current diagnosis for this admission?: Yes (8) Diabetes Is this a current diagnosis for this admission?: Yes - Additional Information Resuscitation Status: Full Code Discharge Diet: Cardiac, Diabetic Discharge Activity: Activity As Tolerated, Balance Activity w/Rest, Weigh Daily Prescriptions: Atorvastatin Calcium [Lipitor 40 mg Tablet] 40 mg PO QHS #30 tablet Carvedilol [Coreg 6.25 mg Tablet] 6.25 mg PO Q12A #60 tablet Furosemide [Lasix 40 mg Tablet] 40 mg PO BID #60 tablet Metformin HCl [Glucophage 500 mg Tablet] 500 mg PO BIDACBS #60 tablet Prednisone [Deltasone 10 mg Tablet] 10 mg PO DAILY #2 tablet Home Medications: Albuterol Sulfate [Proair HFA Inhalation Aerosol 8.5 gm MDI] 2 puff IH Q4HP PRN 10/14/18 Aspirin [Ecotrin 81 mg EC Tablet] 81 mg PO DAILY 10/14/18 Cyanocobalamin (Vitamin B-12) [Vitamin B-12 1000 mcg Tablet] 1,000 mcg PO DAILY 10/14/18 Guaifenesin/Dextromethorphan [Mucinex Dm ER 600-30 mg Tablet] 1 tab PO Q12 10/14 Ipratropium/Albuterol Sulfate [Duoneb 3 ml Ampul] 1 vial NEB QID 10/14/18 Losartan Potassium [Cozaar 50 mg Tablet] 50 mg PO DAILY 10/14/18 Potassium Chloride [Klor-Con 10 Meq Capsule ER] 10 meq PO DAILY 10/14/18 Pravastatin Sodium [Pravachol] 20 mg PO QHS 10/14/18 Fluticasone Propionate [Flonase Nasal Whately 50 Mcg/Whately 16 gm] 2 spray NASL DAILYP PRN 10/15/18 Ibuprofen [Motrin 600 mg Tablet] 600 mg PO Q6HP PRN 10/15/18 Multivitamin/Iron/Folic Acid [Centrum Adults Tablet] 1 tab PO DAILY 10/15/18 [place]-3/Dha/Epa/Fish Oil [Fish Oil 500 mg Softgel] 1 each PO DAILY 10/15/18 Atorvastatin Calcium [Lipitor 40 mg Tablet] 40 mg PO QHS #30 tablet 10/16/18 Carvedilol [Coreg 6.25 mg Tablet] 6.25 mg PO Q12A #60 tablet 10/16/18 Furosemide [Lasix 40 mg Tablet] 40 mg PO BID #60 tablet 10/16/18 Metformin HCl [Glucophage 500 mg Tablet] 500 mg PO BIDACBS #60 tablet 10/16/18 Prednisone [Deltasone 10 mg Tablet] 10 mg PO DAILY #2 tablet 10/16/18 History of Present Illness History of Present Illness: ALEE GUTIERRES is a 57 year old male who presents to the emergency room due to wheezing and shortness of breath. This patient has coronary artery disease, CHF, hypertension. Patient was hospitalized in July due to acute on chronic systolic congestive heart failure. His ejection fraction was measured to be 38% . He was discharged on p.o. Lasix. He underwent stress test outpatient after discharge which was reportedly normal per patient report. He follows with Dr. Lyon. Patient started feeling sick about a week ago when he was out in the rain and felt like he had a cold. He continued to have progressive wheezing and shortness of breath and increasing lower extremity edema. He went to an urgent care about 3 days ago and was diagnosed with bronchitis. Patient was given DuoNeb and azithromycin and his Lasix dose was increased to twice a day instead of once daily. He followed up with Dr. Lyon today who recommended to go to the emergency room. Patient received IV Lasix, steroids and inhaled treatments and he feels a lot better. He also was treated with BiPAP due to severe hypercapnia. Currently he is on nasal cannula and eating his dinner. Hospital Course Hospital Course: Patient was admitted to telemetry bed. He was started on IV Lasix 40 mg twice daily. We monitored his daily weight and his I's and O's. He was seen by cardiology and switched to p.o. Lasix 40 mg twice daily. He also continued on oral prednisone and azithromycin and inhaled treatments. Patient finished a course of azithromycin and will be discharged on 2 more days of oral prednisone and oral Lasix 40 mg twice daily. Will continue losartan and Coreg dose increased. He has an appointment with Dr. Mccabe today. He did not have an echocardiogram in the hospital but can be done I will patient. Patient significantly improved and back to baseline and would like to go home today to keep his appointment with Dr. Mccabe. His hemoglobin A1c was measured to be 6.6 and will start him on metformin. Should follow-up with his primary care physician after discharge. Physical Exam Vital Signs: Temp Pulse Resp BP Pulse Ox 97.5 F 75 16 107/75 91 L 10/16/18 07:53 10/16/18 08:30 10/16/18 08:30 10/16/18 07:53 10/16/18 08:30 Intake & Output 10/15/18 10/16/18 10/17/18 06:59 06:59 06:59 Intake Total 1453 Balance 1453 Weight 284 lb 9.868 oz 292 lb 1.8 oz General appearance: PRESENT: no acute distress, cooperative, obese Eye exam: PRESENT: EOMI. ABSENT: conjunctival injection Ear exam: ABSENT: bleeding, drainage Neck exam: ABSENT: meningismus, tenderness, thyromegaly Respiratory exam: PRESENT: clear to auscultation gunjan. ABSENT: accessory muscle use Cardiovascular exam: PRESENT: RRR. ABSENT: diastolic murmur, systolic murmur, tachycardia Pulses: PRESENT: normal radial pulses GI/Abdominal exam: PRESENT: normal bowel sounds, soft. ABSENT: ascites, mass, tenderness Rectal exam: PRESENT: deferred Neurological exam: PRESENT: alert, altered, awake, oriented to person, oriented to place, oriented to time, oriented to situation Psychiatric exam: ABSENT: agitated, anxious, homicidal ideation, suicidal ideation Results Laboratory Results: 10/16/18 04:43 10/16/18 04:43 10/16/18 10/16/18 04:43 04:43 WBC 10.7 H RBC 5.51 Hgb 16.7 Hct 49.9 MCV 91 MCH 30.2 MCHC 33.4 RDW 16.3 H Plt Count 115 L Seg Neutrophils % 79.9 H Lymphocytes % 12.7 L Monocytes % 6.9 Eosinophils % 0.2 Basophils % 0.3 Absolute Neutrophils 8.6 H Absolute Lymphocytes 1.4 Absolute Monocytes 0.7 Absolute Eosinophils 0.0 Absolute Basophils 0.0 Sodium 141.3 Potassium 4.8 Chloride 94 L Carbon Dioxide 37 H Anion Gap 10 BUN 18 Creatinine 0.60 Est GFR ( Amer) > 60 Est GFR (Non-Af Amer) > 60 Glucose 214 H Calcium 9.0 10/14/18 10/15/18 10/15/18 19:29 01:54 07:43 Troponin I 0.048 0.036 0.040 NT-Pro-B Natriuret Pep 1930 H Impressions: Chest X-Ray 10/14/18 12:35 IMPRESSION: Stable cardiomegaly. No pulmonary vascular congestion or pulmonary edema Qualifiers - * PATIENT BEING DISCHARGED WITH ANY OF THE FOLLOWING DIAGNOSIS: Heart Failure HF Pt being discharged on ACEI for LVEF less than 40%?: Yes HF Pt being discharged on ARBS for LVEF less than 40%?: Yes HF Pt with Afib discharged with Warfarin?: No Reason(s) for not prescribing Warfarin:: Not indicated HF Pt discharged on evidence-based Beta Ad:: Yes
[2018-10-16] MEDS ORDERED: PREDNISONE 10 MG TABLET PO SCH (10:00)
[2018-10-16 10:07] VITALS: BP 122/82
--- NOTE | 2018-10-16 12:08 | PDOC PROGRESS REPORT ---
Subjective Progress Note for:: 10/16/18 Subjective:: Patient seems to be doing better with significant improvement. Patient is expecting to be discharged. Pt is denying any chest arm or neck discomfort. Patient denying any PND, orthopnea. Patient denied any sustained palpitations, dizziness, syncope, near syncope. Patient denying any fever chills. Patient denying any other significant discomfort. Patient is maintaining sinus rhythm. Review of systems: Rest review of systems negative. Medications: Medications have been reviewed. Reason For Visit: HEART FAILURE Physical Exam Vital Signs: Temp Pulse Resp BP Pulse Ox 97.5 F 75 16 122/82 91 L 10/16/18 10:06 10/16/18 10:06 10/16/18 10:06 10/16/18 10:06 10/16/18 10:06 Intake & Output 10/15/18 10/16/18 10/17/18 06:59 06:59 06:59 Intake Total 1453 Balance 1453 Weight 129.1 kg 132.5 kg Exam: GENERAL: well-nourished and in no acute distress. Alert and oriented x3 HEAD: Atraumatic, normocephalic. EYES: KRISTIAN, sclera anicteric, conjunctiva are normal. ENT: Moist mucous membranes. No oral ulcerations or bleeding gums noted. No obvious ear, nose or throat abnormalities noted. NECK: supple without lymphadenopathy. Trachea is central. No cervical or axillary lymphadenopathy noted. Carotids are 2+, JVD WNL LUNGS: Breath sounds clear bilaterally. No wheezes rales or rhonchi noted. No significant dullness noted on percussion. CHEST: Palpation of the chest wall shows no significant chest wall tenderness. 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 ABDOMEN: Soft, no significant tenderness appreciated, normoactive bowel sounds. No guarding, no rebound. No rigidity noted . No masses appreciated. EXTREMITIES: Pedal pulses are 1-2+, no calf tenderness noted. No clubbing or cyanosis. negative pedal edema noted NEUROLOGICAL: Focused neurological exam showed no significant neurologic deficit. Normal speech, no focal weakness appreciated. PSYCH: Normal mood, normal affect. Judgment and insight within normal limits. SKIN: No significant ecchymosis, skin is noted to be warm. MUSCULOSKELETAL EXAM: No significant acute joint swelling noted. Results Laboratory Results: 10/16/18 04:43 10/16/18 04:43 10/16/18 10/16/18 04:43 04:43 WBC 10.7 H RBC 5.51 Hgb 16.7 Hct 49.9 MCV 91 MCH 30.2 MCHC 33.4 RDW 16.3 H Plt Count 115 L Seg Neutrophils % 79.9 H Lymphocytes % 12.7 L Monocytes % 6.9 Eosinophils % 0.2 Basophils % 0.3 Absolute Neutrophils 8.6 H Absolute Lymphocytes 1.4 Absolute Monocytes 0.7 Absolute Eosinophils 0.0 Absolute Basophils 0.0 Sodium 141.3 Potassium 4.8 Chloride 94 L Carbon Dioxide 37 H Anion Gap 10 BUN 18 Creatinine 0.60 Est GFR ( Amer) > 60 Est GFR (Non-Af Amer) > 60 Glucose 214 H Calcium 9.0 10/14/18 10/15/18 10/15/18 19:29 01:54 07:43 Troponin I 0.048 0.036 0.040 NT-Pro-B Natriuret Pep 1930 H Impressions: Chest X-Ray 10/14/18 12:35 IMPRESSION: Stable cardiomegaly. No pulmonary vascular congestion or pulmonary edema Assessment & Plan - Diagnosis (1) CHF (congestive heart failure) Qualifiers: Heart failure type: systolic Heart failure chronicity: acute on chronic Qualified Code(s): I50.23 - Acute on chronic systolic (congestive) heart failure Is this a current diagnosis for this admission?: Yes (2) Cardiomyopathy Qualifiers: Cardiomyopathy type: unspecified Qualified Code(s): I42.9 - Cardiomyopathy , unspecified Is this a current diagnosis for this admission?: Yes (3) Acute bronchitis Qualifiers: Bronchitis organism: unspecified organism Qualified Code(s): J20.9 - Acute bronchitis, unspecified Is this a current diagnosis for this admission?: Yes (4) Diabetes Qualifiers: Diabetes mellitus type: type 2 Diabetes mellitus [facility] insulin use: without [facility] use Diabetes mellitus complication status: without complication Qualified Code(s): E11.9 - Type 2 diabetes mellitus without complications Is this a current diagnosis for this admission?: Yes (5) Dyslipidemia Is this a current diagnosis for this admission?: Yes (6) Hypertension Qualifiers: Hypertension type: essential hypertension Qualified Code(s): I10 - Essential (primary) hypertension Is this a current diagnosis for this admission?: Yes (7) Sleep-disordered breathing Is this a current diagnosis for this admission?: Yes (8) Obesity Qualifiers: Obesity type: unspecified obesity type Obesity classification: unspecified obesity classification Is this a current diagnosis for this admission?: Yes - Notes Notes: Patient is much improved. He is on a stable regimen. Patient can be discharged on current regimen. Patient again encouraged to schedule a sleep study. Acute bronchitis: Continue with antibiotics and bronchodilator therapy as needed. Cardiomyopathy: Patient noted to be on carvedilol and losartan therapy which should be continued. May consider entresto therapy, however this will be considered after evaluating his insurance coverage. Patient currently on a stable regimen. Continue with Lasix at 20 mg p.o. twice daily. Congestive heart failure: This seems well compensated. Continue Lasix at 40 mg p.o. twice daily along with medications. Diabetes: Currently being well managed by the hospitalist. Dyslipidemia: Recommend high potency statin therapy. Hypertension: Blood pressure goal should be 135/85 or less in this gentleman. Obesity: Patient will benefit from gradual weight loss. This was recommended to the patient. Sleep disordered breathing: Patient has high likelihood of having underlying sleep apnea syndrome. Patient will benefit from referral and treatment for this condition. - Time Time with patient: Greater than 35 minutes - CODE STATUS was discussed, patient remains full code. Surrogate decision-maker unchanged. Multiple medical problems were addressed. More than 50% of the time spent coordinating care, discussing management plans with involved caregivers. Management plans discussed with involved personnels. Medical decision making was of moderate to high complexity, patient's has multiple comorbidities. Medications reviewed and adjusted accordingly: Yes
== END 2018-10-16 11:40 | disposition home or self-care (01) | DRG 291 ==
LOC: ER 11:45 → EH 17:52 → 4N 20:20
PROVIDERS: ADMIT Emergency Medicine; ATTEND Emergency Medicine
DX: I11.0 Hypertensive heart disease with heart failure (principal); J96.22 Acute and chronic respiratory failure with hypercapnia; J96.21 Acute and chronic respiratory failure with hypoxia; Z68.41 Body mass index [BMI] 40.0-44.9, adult; I50.23 Acute on chronic systolic (congestive) heart failure; E78.5 Hyperlipidemia, unspecified; E11.8 Type 2 diabetes mellitus with unspecified complications; J20.9 Acute bronchitis, unspecified; I42.9 Cardiomyopathy, unspecified; E66.9 Obesity, unspecified; I25.2 Old myocardial infarction; Z79.82 Long term (current) use of aspirin; Z79.51 Long term (current) use of inhaled steroids; Z79.84 Long term (current) use of oral hypoglycemic drugs; Z79.52 Long term (current) use of systemic steroids; Z79.899 Other long term (current) drug therapy; Z95.5 Presence of coronary angioplasty implant and graft
CPT/HCPCS: 36415; 36600; 71045; 80048; 80053; 80061; 82803; 83036; 83735; 83880; 84443; 84484; 85025; 87804; 93005; 93010; 94640; 94660; 96374; 99285; J1940; J2930; J3475; J3490; J7512; J7620